=== PATIENT | female | born 1950 | race Caucasian/White ===

== ENCOUNTER 2020-07-01 13:57 | Outpatient (REF) | payer MEDICARE, SELFPAY ==
[2020-07-01 15:57] LABS: MANUAL DIFF FLAG NO
[2020-07-01 16:05] LABS: Basophils Percent Auto 0.2 % (0-2); Eosinophils Absolute Auto 0.4 X10*3/uL (0.0-0.4); Eosinophils Percent Auto 3.9 % (0-4); Hematocrit 37.8 % (37-47); Hemoglobin 12.2 g/dl (12.0-16.0); Imm Gran Abs Auto 0.03 X10*3/uL (0.00-0.03); Imm Gran Pct Auto 0.3 % (0.0-0.4); Lymphocytes Absolute Auto 3.2 X10*3/uL (1.2-4.9); Lymphocytes Percent Auto 34.3 % (20-40); Mean Corpuscular HGB Conc 32.3 g/dl (31.0-35.0); Mean Corpuscular Hemoglobin 28.4 pg (27.0-33.0); Mean Corpuscular Volume 87.9 fL (80-98); Mean Platelet Volume 10.2 fL (9.4-12.3); Monocytes Absolute Auto 0.6 X10*3/uL (0.1-1.2); Monocytes Percent Auto 6.7 % (2-11); Neutrophils Absolute Auto 5.1 X10*3/uL (2.0-8.3); Neutrophils Percent Auto 54.6 % (45-73); Platelet Count 271 X10*3/uL (160-400); Red Cell Distribution Width 13.6 % (11.0-16.0); White Blood Count 9.4 X10*3/uL (4.8-10.8)
[2020-07-01 16:49] LABS: Erythrocyte Sedimentation Rate 16 MM/HR (0-20)
[2020-07-02 04:12] LABS: SARS COV2 IgG Negative (Negative)
== END 2020-07-01 13:58 | disposition home or self-care (01) ==
LOC: HO.LAB 13:57
PROVIDERS: PCP Internal Medicine; Referring Provider Internal Medicine; Visit Provider Hospitalist
DX: J40 Bronchitis, not specified as acute or chronic (principal); G47.33 Obstructive sleep apnea (adult) (pediatric); F51.01 Primary insomnia; Z99.89 Dependence on other enabling machines and devices
CPT/HCPCS: 36415; 85025; 85652; 86769; 99214

== ENCOUNTER → 2021-01-16 13:25 | Outpatient (BNVA) | payer MEDICARE, SELFPAY | PROVIDERS: PCP Internal Medicine; Visit Provider Hospitalist | DX: F51.01 Primary insomnia (principal); G47.33 Obstructive sleep apnea (adult) (pediatric); Z99.89 Dependence on other enabling machines and devices | CPT/HCPCS: 99212 ==

== ENCOUNTER → 2021-07-21 12:36 | Outpatient (BNVA) | payer MEDICARE, SELFPAY | PROVIDERS: PCP Internal Medicine; Visit Provider Hospitalist | DX: G47.33 Obstructive sleep apnea (adult) (pediatric) (principal); G93.89 Other specified disorders of brain; F51.01 Primary insomnia; Z99.89 Dependence on other enabling machines and devices | CPT/HCPCS: 99212 ==

== ENCOUNTER → 2022-07-06 10:39 | Outpatient (BNVA) | payer MEDICARE, SELFPAY | PROVIDERS: PCP Internal Medicine; Visit Provider Hospitalist | DX: G47.33 Obstructive sleep apnea (adult) (pediatric) (principal); G47.00 Insomnia, unspecified; G93.89 Other specified disorders of brain; Z99.89 Dependence on other enabling machines and devices | CPT/HCPCS: 99212 ==

== ENCOUNTER → 2023-01-06 10:11 | Outpatient (BNVA) | payer BC, SELFPAY | PROVIDERS: PCP Physician Assistant Medical; Visit Provider Hospitalist | DX: F51.01 Primary insomnia (principal); G47.33 Obstructive sleep apnea (adult) (pediatric); J45.909 Unspecified asthma, uncomplicated; J38.5 Laryngeal spasm; G93.89 Other specified disorders of brain; Z99.89 Dependence on other enabling machines and devices | CPT/HCPCS: 94010; 94640 ==

== ENCOUNTER 2023-05-24 10:13 | Outpatient (AMB) | payer BC, SELFPAY ==
--- NOTE | 2023-05-24 10:21 | MHC.OFFVIS ---
Intake Vital Signs 05/24/23 10:22 Height 5 ft 2 in Weight 167 lb BMI 30.5 BP 126/68 Blood Pressure Location Lt brachial Position Sitting Pulse 64 Pulse Source Pulse Oximeter Pulse Oximetry (%) 98 Oxygen Delivery Method Room Air Intake Visit Reasons: Shortness of breath Casing Running Machine Tender Required: No Allergies No Known Allergies Allergy (Verified 05/24/23 10:24) HPI HPI Comments History of Present Illness Details The patient is a 72-year-old woman with a known history of obstructive sleep apnea on CPAP in addition to insomnia. she still struggles with her sleep. However, she finds that the bill summer all in the as needed lorazepam have become very effective in helping her sleep. She has tried numerous sleep aids without any significant improvement. In the meantime her CPAP machine has not been working properly. It appears the button some no longer working and she is having difficulties with her CPAP therapy due to the mouth functioning machine. Therefore, will request a new CPAP for her. This will provide better adherence and overall better therapy for the patient. The CPAP therapy has been very effective for her and she does use it for more than 4 hours a night in even when she naps. Also to note back in October she was very sick she thought she had COVID-19 infection. We had treated her that time with azithromycin and also Plaquenil. The patient made a full recovery. 01/16/2021 the patient is here for pulmonary follow-up visit. Overall the patient has been doing well. She does still struggle with her sleep. Seems like Belsomra is a very effective sleep aid for her. However, it is very expensive. Therefore will looking for alternatives for her sleep. She tends to do okay with trazodone. In addition to that she does take lorazepam as needed. At this point will try to optimize therapy increasing her trazodone 250 mg q.h.s. and also she can take it along with melatonin. I am hoping that she can avoid taking the lorazepam if possible. When she does sleep she does use her CPAP. The CPAP therapy continues to be affecting beneficial. She does use it for more than 4 hours a night. Denies any difficulties with her mask and seems to be tolerating it well. Otherwise patient is without any other complaints. 07/21/2021 the patient is here for a pulmonary follow-up visit. She had a very eventful summer with her son in the hospital. Apparently had a cardiac arrest due to a myocardial infarction. He did undergo percutaneous intervention and then life flighted to [employer] where he was on extracorporeal life support for many weeks. The patient was having significant anxiety and stress throughout the process. She was taking the Belsomra sleep aid without any significant relief. She was using benzodiazepines a little bit more often. Ultimately, her son improved and she is feeling better. However, while the [facility] the patient fell backwards hurting her head. She denies any significant symptoms but her friend urged her to go to the ER. She did go which she had a CT scan of the brain and subsequently an MRI of the brain demonstrating a 4 x 4 cm masslike density in the occipital lobe causing some mild compression of the nearby structures. The imaging was felt to be a meningioma. The patient has been significantly where it about the findings. She does have an appoint with neural surgery. Will try to facilitate her appointment hopefully she can be seen sooner. She is trying to keep the information away from her family. Her son does not become too we Re or concerned about her health in view of his recovery process. In regards to the sleep the patient will continue using the Belsomra at this time. She did bring her CPAP with her. The CPAP pressure appears to be a little too low for her liking. Her average pressure her machine is around 12 cm. Therefore increase her minimum pressure to 8 and a ramp to 6 in decreasing maximum pressure to 16. the patient will continue using her CPAP has been very affecting beneficial for her. I am hopeful that she can tolerate it better with the adjustments were made in the office. 07/06/2022 the patient is here for a pulmonary follow-up visit. Overall the patient has been doing better overall. She has seen a psychiatrist now in therefore had medication changes. He was able to stop the trazodone and also the Belsomra for sleep. She is getting better sleep. She is also using her CPAP. The CPAP therapy continues to be affecting beneficial. She does use it for more than 4 hours a night. However, her current machine is very old and no longer working. It is leaking water and not providing good seal. Therefore he has been able to use any water for humidification. He was able to be okay during the spring and summer. But now with the fall and winter it is getting very dry as far as the relative humidity. Therefore is hard for her to use it. We did call her DME company to see what the status is at her replace in the feeling that request during the last visit. Hopefully we get her a new machine in the coming weeks. Her current DME company is [employer]. 01/06/2023 the patient is here for a pulmonary follow-up visit. She is status post surgery and ultimately was intubated. Post surgery she was extubated and went into laryngeal spasms and was not ventilating. Therefore the patient was placed on succinylcholine and an LMA was in place. She was then able to ventilate. She was monitored for 24 hours and then she was discharged. The patient after that has still feels short of breath. Heart size hard time taking a full breath. On examination that she does not have any stridor. She does have any wheezing. We did have her undergo a spirometry with it did demonstrate limitation of the inspiratory flow in addition to this it demonstrated that her FEF 25% was decreased down to 60% suggesting small airways disease. Therefore we get did give her the albuterol treatment I did help her symptoms. The I did provide with a Symbicort inhaler in order to provide her with some inhaled steroid effect in addition to bronchodilation effect. She can do that daily. When she is better she can then use it as needed. She will have an x-ray done whenever able and will follow-up in the next few months. She is using her CPAP. CPAP therapy continues to be affecting beneficial. She does use it every night for more than 4 hours a night. We did download the machine and her AHI was slightly elevated at 5.2. Therefore I adjusted her pressure is a little bit for increasing her minimum pressure from 6-8. Maximum pressure would left lung at 16 cm. 05/24/2023 the patient is here for pulmonary follow-up visit. Overall the patient has been feeling well. She continues uses CPAP every night. CPAP therapy has been affecting beneficial. She did bring machine although not the cord. I did have access online. Seems like her AHI is higher at 10 episodes per hour. The patient does use a nasal mask. I did provide with an F 30 I mask which I believe will work better for her. With a fullface mask the patient will probably be able to tolerate the higher pressures. We did increase her Pap from 8-16 to 10-18. I am hopeful that she response to this therapy. In meantime she still struggles with her sleep. The patient has been using lorazepam as needed she sats adverse effects to the hypnotics in the past. She did not really respond well to the gabapentin. She will try melatonin and also Behavioral Sleep therapy. The patient also has the Symbicort inhaler. Has not really used it. Does not feel like she sees any benefit in using it. At this point the patient can use use it as needed. Will follow-up in 6 months otherwise if any new issues arise she can always call for an earlier assessment. [facility] Medical History (Updated 05/24/23 @ 21:35 by Abran Pastrana MD) Laryngospasm Reactive airway disease Mass of brain Insomnia CHEYENNE on CPAP Bronchitis Family History (Updated 07/01/20 @ 20:14 by Abran Pastrana MD) Other CHEYENNE (obstructive sleep apnea) Social History (Updated 07/21/21 @ 13:09 by Yana Alarcon [facility]) Patient Tobacco Use Status: Former Tobacco user Tobacco use type: Cigarette Years Smoked: 5 years Review of Systems Const Reports difficulty sleeping and Denies night sweats ENT Denies change in voice, Denies lip swelling, Denies mouth pain, Reports nasal congestion, Reports nasal discharge and Denies tongue swelling Card Denies chest pain and Denies dyspnea Resp Denies cough and Denies dyspnea GI Denies abdominal pain Musc Denies no additional complaints Neuro Denies Neuro-related abnormal movements Psych Reports anxiety Bebeto/Lymph Denies easy bleeding and Denies lymphadenopathy Aller/Immun Denies lip swelling and Denies tongue swelling Physical Exam Vital Signs: Last Vital Signs Pulse 64 05/24/23 10:22 BP 126/68 05/24/23 10:22 Pulse Ox 98 05/24/23 10:22 Oxygen Delivery Method Room Air 05/24/23 10:22 BMI result Body Mass Index 30.5 Const General: alert Neck Neck: Yes normal visual inspection, Yes full ROM and Yes no lymphadenopathy Chest Chest palpation & inspection: normal inspection of the chest Resp Auscultation: clear to auscultation bilaterally and wheezes Cardio Rate: regular rate Rhythm: regular rhythm Heart sounds: S1 normal heart sound present and S2 normal heart sound present GI Palpation (GI): Soft to palpation and nontender Auscultation: normal bowel sounds Skin General skin exam: rashes and/or lesions noted Assessment & Plan Assessment & Plan (1) Insomnia: Code(s): G47.00 - Insomnia, unspecified Qualifiers: Insomnia type: primary Qualified Code(s): F51.01 - Primary insomnia (2) CHEYENNE on CPAP: Code(s): G47.33 - Obstructive sleep apnea (adult) (pediatric); Z99.89 - Dependence on other enabling machines and devices (3) Reactive airway disease: Comment: secondary to anesthesia Code(s): J45.909 - Unspecified asthma, uncomplicated Qualifiers: Asthma complication type: uncomplicated Asthma persistence: intermittent Asthma severity: mild Qualified Code(s): J45.20 - Mild intermittent asthma, uncomplicated Plan Continue CPAP therapy as prescribed. AHI is 10, will adjust APAP 10-18, ramp 8, trial F30i small mask continue Gabapentin CXR 02/2023-no acute disease continue Symbicort as needed Follow-up in 6 months Coding Level of Care Code Est Pt Level 4 (14721) Diagnoses Primary insomnia F51.01 Insomnia type: primary CHEYENNE on CPAP G47.33; Z99.89 Mild intermittent reactive airway disease without complication J45.20 Asthma complication type: uncomplicated Asthma persistence: intermittent Asthma severity: mild Time Spent (min) 17
[2023-05-24 10:22] VITALS: BP 126/68; PULSE 64; O2SAT 98; BMI 30.5
== END 2023-05-24 10:52 | disposition home or self-care (01) ==
PROVIDERS: PCP Physician Assistant Medical; Visit Provider Hospitalist
DX: F51.01 Primary insomnia (principal); G47.33 Obstructive sleep apnea (adult) (pediatric); Z99.89 Dependence on other enabling machines and devices; J45.20 Mild intermittent asthma, uncomplicated
CPT/HCPCS: 99214

== ENCOUNTER → 2023-05-24 10:13 | Outpatient (BNVA) | payer BC, SELFPAY | PROVIDERS: PCP Physician Assistant Medical; Visit Provider Hospitalist | DX: J40 Bronchitis, not specified as acute or chronic (principal); J44.9 Chronic obstructive pulmonary disease, unspecified ==

== ENCOUNTER → 2023-07-14 09:55 | Outpatient (REF) | payer BC, SELFPAY | LOC: HO.SL 09:55 | PROVIDERS: PCP Physician Assistant Medical; Visit Provider Hospitalist | DX: Z13.89 Encounter for screening for other disorder (principal) ==

== ENCOUNTER 2023-11-23 09:54 | Outpatient (AMB) | payer BC, SELFPAY ==
--- NOTE | 2023-11-23 09:58 | A.OFFVIS_ITS ---
Intake Vital Signs 11/23/23 10:02 Weight 162 lb 0.636 oz BP 122/70 Blood Pressure Location Lt brachial Position Sitting Pulse 73 Pulse Source Pulse Oximeter Pulse Oximetry (%) 96 Oxygen Delivery Method Room Air Intake Visit Reasons: Shortness of breath Allergies No Known Allergies Allergy (Verified 11/23/23 10:04) Medication List - Last Reconciled 11/23/23 by Gretchen Conte LPN atorvastatin 20 mg PO DAILY budesonide-formoterol 160-4.5 mcg/actuation (Symbicort) 2 puffs inhalation BID 90 days bupropion HCl 200 mg PO QAM escitalopram oxalate 20 mg PO DAILY gabapentin 400 mg PO DAILY lorazepam 0.5 mg PO DAILY PRN valsartan 80 mg PO DAILY HPI HPI Comments History of Present Illness Details The patient is a 73-year-old woman with a known history of obstructive sleep apnea on CPAP in addition to insomnia. she still struggles with her sleep. However, she finds that the bill summer all in the as needed lorazepam have become very effective in helping her sleep. She has tried numerous sleep aids without any significant improvement. In the meantime her CPAP machine has not been working properly. It appears the button some no longer working and she is having difficulties with her CPAP therapy due to the mouth functioning machine. Therefore, will request a new CPAP for her. This will provide better adherence and overall better therapy for the patient. The CPAP therapy has been very effective for her and she does use it for more than 4 hours a night in even when she naps. Also to note back in October she was very sick she thought she had COVID-19 infection. We had treated her that time with azithromycin and also Plaquenil. The patient made a full recovery. 07/06/2022 the [facility] Overall the patient has been doing better overall. She has seen a psychiatrist now in therefore had medication changes. He was able to stop the trazodone and also the Belsomra for sleep. She is getting better sleep. She is also using her CPAP. The CPAP therapy continues to be affecting beneficial. She does use it for more than 4 hours a night. However, her current machine is very old and no longer working. It is leaking water and not providing good seal. Therefore he has been able to use any water for humidification. He was able to be okay during the spring and summer. But now with the fall and winter it is getting very dry as far as the relative humidity. Therefore is hard for her to use it. We did call her DME company to see what the status is at her replace in the feeling that request during the last visit. Hopefully we get her a new machine in the coming weeks. Her current DME company is [employer]. 01/06/2023 the patient is here for a pulm onary follow-up visit. She is status post surgery and ultimately was intubated. Post surgery she was extubated and went into laryngeal spasms and was not ventilating. Therefore the patient was placed on succinylcholine and an LMA was in place. She was then able to ventilate. She was monitored for 24 hours and then she was discharged. The patient after that has still feels short of breath. Heart size hard time taking a full breath. On examination that she does not have any stridor. She does have any wheezing. We did have her undergo a spirometry with it did demonstrate limitation of the inspiratory flow in addition to this it demonstrated that her FEF 25% was decreased down to 60% suggesting small airways disease. Therefore we get did give her the albuterol treatment I did help her symptoms. The I did provide with a Symbicort inhaler in order to provide her with some inhaled steroid effect in addition to bronchodilation effect. She can do that daily. When she is better she can then use it as needed. She will have an x-ray done whenever able and will follow-up in the next few months. She is using her CPAP. CPAP therapy continues to be affecting beneficial. She does use it every night for more than 4 hours a night. We did download the machine and her AHI was slightly elevated at 5.2. Therefore I adjusted her pressure is a little bit for increasing her minimum pressure from 6-8. Maximum pressure would left lung at 16 cm. 05/24/2023 the patient is here for pulmon [place] follow-up visit. Overall the p atient has been feeling well. She continues uses CPAP every night. CPAP therapy has been affecting beneficial. She did bring machine although not the cord. I did have access online. Seems like her AHI is higher at 10 episodes per hour. The patient does use a nasal mask. I did provide with an F 30 I mask which I believe will work better for her. With a fullface mask the patient will probably be able to tolerate the higher pressures. We did increase her Pap from 8-16 to 10-18. I am hopeful that she response to this therapy. In meantime she still struggles with her sleep. The patient has been using lorazepam as needed she sats adverse effects to the hypnotics in the past. She did not really respond well to the gabapentin. She will try melatonin and also Behavioral Sleep therapy. The patient also has the Symbicort inhaler. Has not really used it. Does not feel like she sees any benefit in using it. At this point the patient can use use it as needed. Will follow-up in 6 months otherwise if any new issues arise she can always call for an earlier assessment. 11/23/2023 the patient is here for a pulm onary follow-up visit. Overall the patient is doing well. She is that back in [place]. She has been using her CPAP every night. The CPAP therapy continues to be very affecting beneficial. She does use it every night. Although she has been having some issues with her mask fitting in addition to her supplies. She does use [employer]. the patient does have an F30 I medium mask that is been working well for her although, it is crying now broken and I did provide her with a new cushion for which seems to be much better. In addition to that her AHI significantly elevated. Averages around 11.3 and last night was around 20. And appears to be that is mainly obstructive in nature. The patient needs to have a repeat sleep study this time. She actually needs a titration study but may need a sleep study in order to get a active with the [employer]. We did request a home sleep study during the fall. However, the patient had a lot of difficulties with it. And she may have some issues with memory that makes it very hard for her to complete the task. Therefore, an in-lab sleep study will be very effective for her we can diagnosed with sleep apnea and then titrate her with a split study. Therefore put it order right now to do that. The patient does have significant needs for the CPAP and right now is not working for her as well. From a respiratory status she is doing fine. She did get a rescue inhaler during the last visit. She has not had to use it recently. Therefore, follow-up with the patient after her study. [facility] Medical History (Updated 06/03/23 @ 12:30 by Abran Pastrana MD) CHEYENNE (obstructive sleep apnea) Laryngospasm Reactive airway disease Mass of brain Insomnia CHEYENNE on CPAP Bronchitis Family History (Updated 07/01/20 @ 20:14 by Abran Pastrana MD) Other CHEYENNE (obstructive sleep apnea) Social History (Updated 07/21/21 @ 13:09 by Yana Alarcon [facility]) Patient Tobacco Use Status: Former Tobacco user Tobacco use type: Cigarette Years Smoked: 5 years Review of Systems Const Reports difficulty sleeping and Denies night sweats ENT Denies change in voice, Denies lip swelling, Denies mouth pain, Reports nasal congestion, Reports nasal discharge and Denies tongue swelling Card Denies chest pain and Denies dyspnea Resp Denies cough and Denies dyspnea GI Denies abdominal pain Musc Denies no additional complaints Neuro Denies Neuro-related abnormal movements Psych Reports anxiety Bebeto/Lymph Denies easy bleeding and Denies lymphadenopathy Aller/Immun Denies lip swelling and Denies tongue swelling Physical Exam Vital Signs: Last Vital Signs Pulse 73 11/23/23 10:02 BP 122/70 11/23/23 10:02 Pulse Ox 96 11/23/23 10:02 Oxygen Delivery Method Room Air 11/23/23 10:02 Const General: alert Neck Neck: Yes normal visual inspection, Yes full ROM and Yes no lymphadenopathy Chest Chest palpation & inspection: normal inspection of the chest Resp Auscultation: clear to auscultation bilaterally and no wheezes Cardio Rate: regular rate Rhythm: regular rhythm Heart sounds: S1 normal heart sound present and S2 normal heart sound present GI Palpation (GI): Soft to palpation and nontender Auscultation: normal bowel sounds Skin General skin exam: rashes and/or lesions noted Assessment & Plan Assessment & Plan (1) Insomnia: Code(s): G47.00 - Insomnia, unspecified Qualifiers: Insomnia type: primary Qualified Code(s): F51.01 - Primary insomnia (2) CHEYENNE on CPAP: Code(s): G47.33 - Obstructive sleep apnea (adult) (pediatric); Z99.89 - Dependence on other enabling machines and devices (3) Reactive airway disease: Comment: secondary to anesthesia Code(s): J45.909 - Unspecified asthma, uncomplicated Qualifiers: Asthma complication type: uncomplicated Asthma persistence: intermittent Asthma severity: mild Qualified Code(s): J45.20 - Mild intermittent asthma, uncomplicated Plan Continue CPAP therapy as prescribed. AHI is 11, will adjust APAP 6-18, ramp 8, trial F30i small mask requesting a split sleep study continue Gabapentin CXR 02/2023-no acute disease continue Symbicort as needed Follow-up in 3-4 months Orders: Orders RT PSG in-lab sleep study Today Coding Level of Care Code Est Pt Level 4 (22067) Diagnoses Primary insomnia F51.01 Insomnia type: primary CHEYENNE on CPAP G47.33; Z99.89 Mild intermittent reactive airway disease without complication J45.20 Asthma complication type: uncomplicated Asthma persistence: intermittent Asthma severity: mild Time Spent (min) 17
[2023-11-23 10:02] VITALS: BP 122/70; PULSE 73; O2SAT 96
== END 2023-11-23 10:34 | disposition home or self-care (01) ==
PROVIDERS: PCP Physician Assistant Medical; Visit Provider Hospitalist
DX: F51.01 Primary insomnia (principal); G47.33 Obstructive sleep apnea (adult) (pediatric); Z99.89 Dependence on other enabling machines and devices; J45.20 Mild intermittent asthma, uncomplicated
CPT/HCPCS: 99214

== ENCOUNTER → 2023-11-23 09:54 | Outpatient (BNVA) | payer BC, SELFPAY | PROVIDERS: PCP Physician Assistant Medical; Visit Provider Hospitalist | DX: J40 Bronchitis, not specified as acute or chronic (principal); J44.9 Chronic obstructive pulmonary disease, unspecified ==

== ENCOUNTER → 2024-02-14 13:47 | Outpatient (REF) | payer BC, SELFPAY | LOC: HO.SL 13:47 | PROVIDERS: PCP Physician Assistant Medical; Visit Provider Hospitalist | DX: Z13.89 Encounter for screening for other disorder (principal) ==

== ENCOUNTER 2024-04-03 09:59 | Outpatient (AMB) | payer BC, SELFPAY ==
[2024-04-03 10:08] VITALS: PULSE 69; O2SAT 96; BMI 31.1
--- NOTE | 2024-04-03 10:08 | A.OFFVIS_ITS ---
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 she still struggles with her sleep. However, she finds that the bill summer all in the as needed lorazepam have become very effective in helping her sleep. She has tried numerous sleep aids without any significant improvement. In the meantime her CPAP machine has not been working properly. It appears the button some no longer working and she is having difficulties with her CPAP therapy due to the mouth functioning machine. Therefore, will request a new CPAP for her. This will provide better adherence and overall better therapy for the patient. The CPAP therapy has been very effective for her and she does use it for more than 4 hours a night in even when she naps. Also to note back in October she was very sick she thought she had COVID-19 infection. We had treated her that time with azithromycin and also Plaquenil. The patient made a full recovery. 07/06/2022 the patient is here for a pulmonary follow-up visit. Overall the alex suh has been doing better overall. She has seen a psychiatrist now in therefore had medication changes. He was able to stop the trazodone and also the Belsomra for sleep. She is getting better sleep. She is also using her CPAP. The CPAP therapy continues to be affecting beneficial. She does use it for more than 4 hours a night. However, her current machine is very old and no longer working. It is leaking water and not providing good seal. Therefore he has been able to use any water for humidification. He was able to be okay during the spring and summer. But now with the fall and winter it is getting very dry as far as the relative humidity. Therefore is hard for her to use it. We did call her DME company to see what the status is at her replace in the feeling that request during the last visit. Hopefully we get her a new machine in the coming weeks. Her current DME company is [employer]. 01/06/2023 the patient is here for a pulmonary follow-up visit. She is status post surgery and ultimately was intubated. Post surgery she was extubated and went into laryngeal spasms and was not ventilating. Therefore the patient was placed on succinylcholine and an LMA was in place. She was then able to ventilate. She was monitored for 24 hours and then she was discharged. The patient after that has still feels short of breath. Heart size hard time taking a full breath. On examination that she does not have any stridor. She does have any wheezing. We did have her undergo a spirometry with it did demonstrate limitation of the inspiratory flow in addition to this it demonstrated that her FEF 25% was decreased down to 60% suggesting small airways disease. Therefore we get did give her the albuterol treatment I did help her symptoms. The I did provide with a Symbicort inhaler in order to provide her with some inhaled steroid effect in addition to bronchodilation effect. She can do that daily. When she is better she can then use it as needed. She will have an x-ray done whenever able and will follow-up in the next few months. She is using her CPAP. CPAP therapy continues to be affecting beneficial. She does use it every night for more than 4 hours a night. We did download the machine and her AHI was slightly elevated at 5.2. Therefore I adjusted her pressure is a little bit for increasing her minimum pressure from 6-8. Maximum pressure would left lung at 16 cm. 05/24/2023 the patient is here for pulmonary follow-up visit. Overall the patient has been feeling well. She continues uses CPAP every night. CPAP therapy has been affecting beneficial. She did bring machine although not the cord. I did have access online. Seems like her AHI is higher at 10 episodes per hour. The patient does use a nasal mask. I did provide with an F 30 I mask which I believe will work better for her. With a fullface mask the patient will probably be able to tolerate the higher pressures. We did increase her Pap from 8-16 to 10-18. I am hopeful that she response to this therapy. In meantime she still struggles with her sleep. The patient has been using lorazepam as needed she sats adverse effects to the hypnotics in the past. She did not really respond well to the gabapentin. She will try melatonin and also Behavioral Sleep therapy. The patient also has the Symbicort inhaler. Has not really used it. Does not feel like she sees any benefit in using it. At this point the patient can use use it as needed. Will follow-up in 6 months otherwise if any new issues arise she can always call for an earlier assessment. 11/23/2023 the patient is here for a pulmonary follow-up visit. Overall the patient is doing well. She is that back in [place]. She has been using her CPAP every night. The CPAP therapy continues to be very affecting beneficial. She does use it every night. Although she has been having some issues with her mask fitting in addition to her supplies. She does use [employer] the patient does have an F30 I medium mask that is been working well for her although, it is crying now broken and I did provide her with a new cushion for which seems to be much better. In addition to that her AHI significantly e levated. Averages around 11.3 and last night was around 20. And appears to be that is mainly obstructive in nature. The patient needs to have a repeat sleep study this time. She actually needs a titration study but may need a sleep study in order to get a active with the [employer] company. We did request a home sleep study during the fall. However, the patient had a lot of difficulties with it. And she may have some issues with memory that makes it very hard for her to complete the task. Therefore, an in-lab sleep study will be very effective for her we can diagnosed with sleep apnea and then titrate her with a split study. Therefore put it order right now to do that. The patient does have significant needs for the CPAP and right now is not working for her as well. From a respiratory status she is doing fine. She did get a rescue inhaler during the last visit. She has not had to use it recently. Therefore, follow-up with the patient after her study. 04/03/2024 the patient is here for a pulmonary follow-up visit. Overall she is doing okay. She wishes that the tape and she forgot her meds and she had a difficult time that she did have her psychiatric blood pressure medications. Now she is back to her baseline. She is using her CPAP and she did use the new mask that seems to be feeling better. We were able to download her machine seems that the AHI is improving as well. Will go ahead and adjust her machine further increasing pressures to some degree. I am hopeful that she can not tolerate the higher pressure and we can bring the AHI down. Will go ahead and looked at the data in a couple weeks after she calls the office. Once we will to assess that we can figure out if she needs to continue on the current settings or does settings are not enough will at that point probably need a titration studies and she will be maxed out on her CPAP and will benefit from a BiPAP. Therefore will reassess in a couple weeks when she calls in to see her progress on CPAP. From a respiratory status she is doing okay. She has all her medications available. Will follow-up in 6-8 months or sooner if she continues to have difficulties with her CPAP. [facility] Medical History (Updated 06/03/23 @ 12:30 by Abran Pastrana MD) CHEYENNE (obstructive sleep apnea) Laryngospasm Reactive airway disease Mass of brain Insomnia CHEYENNE on CPAP Bronchitis Family History (Updated 07/01/20 @ 20:14 by Abran Pastrana MD) Other CHEYENNE (obstructive sleep apnea) Social History (Updated 07/21/21 @ 13:09 by Yana Alarcon Rosalio) Patient Tobacco Use Status: Former Tobacco user Tobacco use type: Cigarette Years Smoked: 5 years Review of Systems Const Reports difficulty sleeping and Denies night sweats ENT Denies change in voice, Denies lip swelling, Denies mouth pain, Reports nasal congestion, Reports nasal discharge and Denies tongue swelling Card Denies chest pain and Denies dyspnea Resp Denies cough and Denies dyspnea GI Denies abdominal pain Musc Denies no additional complaints Neuro Denies Neuro-related abnormal movements Psych Reports anxiety Bebeto/Lymph Denies easy bleeding and Denies lymphadenopathy Aller/Immun Denies lip swelling and Denies tongue swelling Physical Exam Vital Signs: Last Vital Signs Pulse 69 04/03/24 10:08 Pulse Ox 96 04/03/24 10:08 Oxygen Delivery Method Room Air 04/03/24 10:08 BMI result Body Mass Index 31.1 Const General: alert Neck Neck: Yes normal visual inspection, Yes full ROM and Yes no lymphadenopathy Chest Chest palpation & inspection: normal inspection of the chest Resp Auscultation: clear to auscultation bilaterally and no wheezes Cardio Rate: regular rate Rhythm: regular rhythm Heart sounds: S1 normal heart sound present and S2 normal heart sound present GI Palpation (GI): Soft to palpation and nontender Auscultation: normal bowel sounds Skin General skin exam: rashes and/or lesions noted Assessment & Plan Assessment & Plan (1) Insomnia: Code(s): G47.00 - Insomnia, unspecified Category: Medical Qualifiers: Insomnia type: primary Qualified Code(s): F51.01 - Primary insomnia (2) CHEYENNE on CPAP: Code(s): G47.33 - Obstructive sleep apnea (adult) (pediatric); Z99.89 - Dependence on other enabling machines and devices Category: Medical (3) Reactive airway disease: Comment: secondary to anesthesia Code(s): J45.909 - Unspecified asthma, uncomplicated Category: Medical Qualifiers: Asthma complication type: uncomplicated Asthma persistence: intermittent Asthma severity: mild Qualified Code(s): J45.20 - Mild intermittent asthma, uncomplicated Plan Continue CPAP therapy as prescribed. AHI is 11, will adjust APAP 8-20, ramp 6, trial F30i small mask consider titration study if persistent elevated AHI continue Gabapentin CXR 02/2023-no acute disease continue Symbicort as needed Follow-up in 6-8 months Coding Level of Care Code Est Pt Level 4 (94564) Diagnoses Primary insomnia F51.01 Insomnia type: primary CHEYENNE on CPAP G47.33; Z99.89 Mild intermittent reactive airway disease without complication J45.20 Asthma complication type: uncomplicated Asthma persistence: intermittent Asthma severity: mild Time Spent (min) 16
== END 2024-04-03 10:25 | disposition home or self-care (01) ==
PROVIDERS: PCP Physician Assistant Medical; Visit Provider Hospitalist
DX: F51.01 Primary insomnia (principal); G47.33 Obstructive sleep apnea (adult) (pediatric); Z99.89 Dependence on other enabling machines and devices; J45.20 Mild intermittent asthma, uncomplicated
CPT/HCPCS: 99214

== ENCOUNTER → 2024-04-03 09:59 | Outpatient (BNVA) | payer BC, SELFPAY | PROVIDERS: PCP Physician Assistant Medical; Visit Provider Hospitalist ==

== ENCOUNTER 2024-11-21 13:33 | Outpatient (AMB) | payer MEDICARE, SELFPAY ==
--- NOTE | 2024-11-21 13:40 | MHC.OFFVIS ---
Vital Signs 11/21/24 13:42 Height 5 ft 2 in Weight 141 lb 1.533 oz BMI 25.8 BP 94/60 Blood Pressure Location Rt brachial Position Sitting Pulse 69 Pulse Source Pulse Oximeter Pulse Oximetry (%) 98 Oxygen Delivery Method Room Air Intake Visit Reasons: Shortness of breath Allergies No Known Allergies Allergy (Verified 11/21/24 13:48) HPI Comments Details: The patient is a 74-year-old woman with a known history of obstructive sleep apnea on CPAP in addition to insomnia. she still struggles with her sleep. However, she finds that the bill summer all in the as needed lorazepam have become very effective in helping her sleep. She has tried numerous sleep aids without any significant improvement. In the meantime her CPAP machine has not been working properly. It appears the button some no longer working and she is having difficulties with her CPAP therapy due to the mouth functioning machine. Therefore, will request a new CPAP for her. This will provide better adherence and overall better therapy for the patient. The CPAP therapy has been very effective for her and she does use it for more than 4 hours a night in even when she naps. Also to note back in October she was very sick she thought she had COVID-19 infection. We had treated her that time with azithromycin and also Plaquenil. The patient made a full recovery. 07/06/2022 the patient is here for a pulmonary follow-up visit. Overall the patient has been doing better overall. She has seen a psychiatrist now in therefore had medication changes. He was able to stop the trazodone and also the Belsomra for sleep. She is getting better sleep. She is also using her CPAP. The CPAP therapy continues to be affecting beneficial. She does use it for more than 4 hours a night. However, her current machine is very old and no longer working. It is leaking water and not providing good seal. Therefore he has been able to use any water for humidification. He was able to be okay during the spring and summer. But now with the fall and winter it is getting very dry as far as the relative humidity. Therefore is hard for her to use it. We did call her DME company to see what the status is at her replace in the feeling that request during the last visit. Hopefully we get her a new machine in the coming weeks. Her current DME company is [employer]. 01/06/2023 the patient is here for a pulmonary follow-up visit. She is status post surgery and ultimately was intubated. Post surgery she was extubated and went into laryngeal spasms and was not ventilating. Therefore the patient was placed on succinylcholine and an LMA was in place. She was then able to ventilate. She was monitored for 24 hours and then she was discharged. The patient after that has still feels short of breath. Heart size hard time taking a full breath. On examination that she does not have any stridor. She does have any wheezing. We did have her undergo a spirometry with it did demonstrate limitation of the inspiratory flow in addition to this it demonstrated that her FEF 25% was decreased down to 60% suggesting small airways disease. Therefore we get did give her the albuterol treatment I did help her symptoms. The I did provide with a Symbicort inhaler in order to provide her with some inhaled steroid effect in addition to bronchodilation effect. She can do that daily. When she is better she can then use it as needed. She will have an x-ray done whenever able and will follow-up in the next few months. She is using her CPAP. CPAP therapy continues to be affecting beneficial. She does use it every night for more than 4 hours a night. We did download the machine and her AHI was slightly elevated at 5.2. Therefore I adjusted her pressure is a little bit for increasing her minimum pressure from 6-8. Maximum pressure would left lung at 16 cm. 05/24/2023 the patient is here for pulmonary follow-up visit. Overall the patient has been feeling well. She continues uses CPAP every night. CPAP therapy has been affecting beneficial. She did bring machine although not the cord. I did have access online. Seems like her AHI is higher at 10 episodes per hour. The patient does use a nasal mask. I did provide with an F 30 I mask which I believe will work better for her. With a fullface mask the patient will probably be able to tolerate the higher pressures. We did increase her Pap from 8-16 to 10-18. I am hopeful that she response to this therapy. In meantime she still struggles with her sleep. The patient has been using lorazepam as needed she sats adverse effects to the hypnotics in the past. She did not really respond well to the gabapentin. She will try melatonin and also Behavioral Sleep therapy. The patient also has the Symbicort inhaler. Has not really used it. Does not feel like she sees any benefit in using it. At this point the patient can use use it as needed. Will follow-up in 6 months otherwise if any new issues arise she can always call for an earlier assessment. 11/23/2023 the patient is here for a pulmonary follow-up visit. Overall the patient is doing well. She is that back in [place]. She has been using her CPAP every night. The CPAP therapy continues to be very affecting beneficial. She does use it every night. Although she has been having some issues with her mask fitting in addition to her supplies. She does use [employer] the patient does have an F30 I medium mask that is been working well for her although, it is crying now broken and I did provide her with a new cushion for which seems to be much better. In addition to that her AHI significantly elevated. Averages around 11.3 and last night was around 20. And appears to be that is mainly obstructive in nature. The patient needs to have a repeat sleep study this time. She actually needs a titration study but may need a sleep study in order to get a active with the [employer] company. We did request a home sleep study during the fall. However, the patient had a lot of difficulties with it. And she may have some issues with memory that makes it very hard for her to complete the task. Therefore, an in-lab sleep study will be very effective for her we can diagnosed with sleep apnea and then titrate her with a split study. Therefore put it order right now to do that. The patient does have significant needs for the CPAP and right now is not working for her as well. From a respiratory status she is doing fine. She did get a rescue inhaler during the last visit. She has not had to use it recently. Therefore, follow-up with the patient after her study. 04/03/2024 the patient is here for a pulmonary follow-up visit. Overall she is doing okay. She wishes that the tape and she forgot her meds and she had a difficult time that she did have her psychiatric blood pressure medications. Now she is back to her baseline. She is using her CPAP and she did use the new mask that seems to be feeling better. We were able to download her machine seems that the AHI is improving as well. Will go ahead and adjust her machine further increasing pressures to some degree. I am hopeful that she can not tolerate the higher pressure and we can bring the AHI down. Will go ahead and looked at the data in a couple weeks after she calls the office. Once we will to assess that we can figure out if she needs to continue on the current settings or does settings are not enough will at that point probably need a titration studies and she will be maxed out on her CPAP and will benefit from a BiPAP. Therefore will reassess in a couple weeks when she calls in to see her progress on CPAP. From a respiratory status she is doing okay. She has all her medications available. Will follow-up in 6-8 months or sooner if she continues to have difficulties with her CPAP. 11/21/2024 the patient is here for a pulmonary follow-up visit. The patient has been using the CPAP every night. CPAP therapy has been affecting beneficial. She does use for more than 4 hours a night. She had been having issues with her memory now. Her AHI continues to be very elevated at 13. We did request a titration study previously but it was not approved by insurance company for unclear reason. The patient continues to have a significantly high Mauk score and she is symptomatic therefore she needs to have a titration study in order to see if we need to either increase the pressures or change her PAP therapy altogether. In the meantime I did increase the pressure further from 8-10 cm pressure high pressure of 20 cm. The patient also will try new mask will try the F 40 mask from the [employer] company. From a respiratory status the patient is doing okay. Denies any wheezing coughing or chest tightness. [facility] Medical History (Updated 11/21/24 @ 22:31 by Abran Pastrana MD) CHEYENNE (obstructive sleep apnea) Laryngospasm Reactive airway disease Mass of brain Insomnia CHEYENNE on CPAP Bronchitis Family History (Updated 07/01/20 @ 20:14 by Abran Pastrana MD) Other CHEYENNE (obstructive sleep apnea) Social History Patient Tobacco Use Status: Former Tobacco user Tobacco use type: Cigarette Years Smoked: 5 years Review of Systems Const Reports difficulty sleeping and Denies night sweats ENT Denies change in voice, Denies lip swelling, Denies mouth pain, Reports nasal congestion, Reports nasal discharge and Denies tongue swelling Card Denies chest pain and Denies dyspnea Resp Denies cough and Denies dyspnea GI Denies abdominal pain Musc Denies no additional complaints Neuro Denies Neuro-related abnormal movements Psych Reports anxiety Bebeto/Lymph Denies easy bleeding and Denies lymphadenopathy Aller/Immun Denies lip swelling and Denies tongue swelling Physical Exam Vital Signs: Last Vital Signs Pulse 69 11/21/24 13:42 BP 94/60 11/21/24 13:42 Pulse Ox 98 11/21/24 13:42 Oxygen Delivery Method Room Air 11/21/24 13:42 BMI result Body Mass Index 25.8 Const General: alert Neck Neck: Yes normal visual inspection, Yes full ROM and Yes no lymphadenopathy Chest Chest palpation & inspection: normal inspection of the chest Resp Auscultation: clear to auscultation bilaterally and no wheezes Cardio Rate: regular rate Rhythm: regular rhythm Heart sounds: S1 normal heart sound present and S2 normal heart sound present GI Palpation (GI): Soft to palpation and nontender Auscultation: normal bowel sounds Skin General skin exam: rashes and/or lesions noted Assessment & Plan Assessment & Plan (1) Insomnia: Code(s): G47.00 - Insomnia, unspecified Category: Medical Qualifiers: Insomnia type: primary Qualified Code(s): F51.01 - Primary insomnia (2) CHEYENNE on CPAP: Comment: with elevated AHI 13 on APAP Code(s): G47.33 - Obstructive sleep apnea (adult) (pediatric); Z99.89 - Dependence on other enabling machines and devices Category: Medical (3) Reactive airway disease: Comment: secondary to anesthesia Code(s): J45.909 - Unspecified asthma, uncomplicated Category: Medical Qualifiers: Asthma complication type: uncomplicated Asthma persistence: intermittent Asthma severity: mild Qualified Code(s): J45.20 - Mild intermittent asthma, uncomplicated (4) CHEYENNE (obstructive sleep apnea): Code(s): G47.33 - Obstructive sleep apnea (adult) (pediatric) Category: Medical Plan Continue CPAP therapy as prescribed. AHI is 11->13, will adjust APAP 10-20, ramp 8, requesting F40 needs titration study for worsening AHI on proper APAP therapy continue Gabapentin CXR 02/2023-no acute disease continue Symbicort as needed Follow-up in 4-6 months Orders: Orders RT PSG in-lab sleep titration Today G47.33 - Obstructive sleep apnea (adult) (pediatric) Coding Level of Care Code Est Pt Level 4 (32630) Diagnoses Primary insomnia F51.01 Insomnia type: primary CHEYENNE on CPAP G47.33; Z99.89 Mild intermittent reactive airway disease without complication J45.20 Asthma complication type: uncomplicated Asthma persistence: intermittent Asthma severity: mild CHEYENNE (obstructive sleep apnea) G47.33 Time Spent (min) 17
[2024-11-21 13:42] VITALS: BP 94/60; PULSE 69; O2SAT 98; BMI 25.8
--- OUTSIDE RECORDS SUMMARY | 2024-11-21 16:25 | XMS_ITS | Encounter Summary ---
Author Organization [facility] Address [address] [place] [id number] Care Team Providers Care Collection Supervisor Name Role Phone Nani Fowler Primary Care Provider [phone] Reason for Visit * Reason Comments Sore Throat Encounter Details Date Type Department Care Team (Late st Contact Info) Description 10/23/2024 11:45 AM EST Office Visit [facility] [address], [place] [address] Shahbaz Mills MD [address] [place] [phone] Dysphonia (Primary Dx); Vocal cord paresis; Gastroesophageal reflux disease without esophagitis; Memory loss Social History Tobacco Use Types Packs/Day Years Used Date Smoking Tobacco: Never Passive Smoke Exposure: Never Smokeless Tobacco: Never Sex and Gender Information Value Date Recorded Sex Assigned at Not on file Gender Identity Not on file Sexual Orientation Not on file documented as of this encounter Last Filed Vital Signs Vital Sign Reading Time Taken Comments Blood Pressure - - Pulse - - Temperature - - Respiratory Rate - - Oxygen Saturation - - Inhaled Oxygen Concentration - - Weight 77.1 kg (170 lb) 10/23/2024 11:21 AM EST Height 162.6 cm (5' 4 ) 10/23/2024 11:21 AM EST Body Mass Index 29.18 10/23/2024 11:21 AM EST documented in this encounter Progress Notes * Shahbaz Mills MD - 10/23/2024 11:45 AM EST Images from the original note were not included. [address] [place] [address], [facility] [id number] Loc: [phone] Encounter Date: 10/23/2024 Chief Complaint Patient presents with Sore Throat 1. Dysphonia 2. Vocal cord paresis 3. Gastroesophageal reflux disease without esophagitis 4. Memory loss ASSESSMENT AND PLAN Jaky Lackey is a 74-year-old female presenting for follow-up of dysphonia and a vocal cord polyp. She has been on famotidine for laryngopharyngeal reflux. A CT scan of the neck with contrast on 08/08/2024 showed no neck mass or specific lymphadenopathy, only prominent bilateral cervical lymph nodes.The patient reports no recurrence of facial swelling or parotitis since her last visit. She continues to experience significant hoarseness and reports that her voice is particularly weak in the morning. There is a noted left vocal cord weakness without a clear etiology, potentially idiopathic or post-viral. No new findings were observed on examination today. - Continue famotidine medication - Referral to Speech and Language Pathology at [facility] - Provide patient with a copy of the CT scan report - Neurology referral for memory concerns - Follow-up appointment in six months HISTORY OF PRESENT ILLNESS Jaky Lackey reports persistent hoarseness and voice weakness, especially in the mornings. She has not experienced any recurrence of facial swelling or parotitis. She continues to take famotidine and requests a refill. She stopped taking cetirizine as it did not seem to help her sinus issues. She is concerned about her voice quality and reports that people have difficulty understanding her. She hasa history of brain surgery for a meningioma and undergoes regular brain scans. PHYSICAL EXAM The patient was in no acute distress and breathing comfortably on exam. Examination of the ears, nose, oral cavity, oropharynx, and neck was completed and found to be within normal limits with the following notable exceptions and findings highlighted here: - Ears: Normal - Nose: Normal - Throat: Left vocal cord weakness observed, both cords moving but asymmetrically. No polyps, masses, or ulceration observed DIAGNOSTIC TESTING REVIEWED CT scan of the neck with contrast on 08/08/2024 showed no evidence of neck mass or specific lymphadenopathy. There were prominent bilateral cervical lymph nodes but no abnormalities. The scan was read as normal. Procedure: Flexible Fiberoptic Laryngoscopy Indication: Ongoing throat symptoms not improving with medical strategies and inability to fully evaluate the area of concern with transoral exam Description: In order to evaluate the area of concern, and in the context of the patient's symptomsnot fully accounted for oral cavity and oropharyngeal exam, a flexible fiberoptic endoscopy was discussed with the patient. Following consent for the procedure, topical 50:50 4% lidocaine/oxymetazoline solution was used as a topical anesthesic and decongestant. After adequate time for this to take e ffect, an endoscope was used to evaluate the nasal passages, nasopharynx, oropharynx, larynx, and hypopharynx. Please see findings below for details. The endoscope was then removed and the patient was observed without bleeding and with good respirations. The patient tolerated the procedure was and was discharged home in good condition. Findings: Nasal passages and nasopharynx: mild edema throughout without mucosal lesions, no obstructing lesions, patent eustachian tube orifices Oropharynx: Base of tongue with normal mucosa, posterior visualization of tonsil area within normal, vallecular clear and free of masses Hypopharynx: No significant pooling of secretions, free of masses, clear piriform sinuses Larynx: Epiglottis, arytenoids, and AE folds: mild intra-arytenoid edema. Mild erythema diffusely present True vocal cords: asymmetrically mobile, left weakness observed, no polyps, no mucosal lesions, no glottic gap during phonation Mild glottic and subglottic edema without obstruction Swallow performed with adequate elevation of larynx and closure of epiglottis. Airway widely patent during inspiration. Shahbaz Mills 10/23/2024 PAST MEDICAL HISTORY Past Medical History: Diagnosis Date Allergic rhinitis 07/26/2024 Anxiety 07/26/2024 Bipolar 2 disorder (HCC) 07/26/2024 CKD (chronic kidney disease) stage 3, GFR 30-59 ml/min ([facility]) 07/26/2024 HTN (hypertension) 07/26/2024 Hyperlipidemia 07/26/2024 [place] (obstructive sleep apnea) 07/26/2024 Past Surgical History: Procedure Laterality Date ANAL FISTULOTOMY BRAIN SURGERY BREAST SURGERY CARPAL TUNNEL RELEASE REPLACEMENT TOTAL KNEE BILATERAL History reviewed. No pertinent family history. Social History Tobacco Use Smoking status: Never Passive exposure: Never Smokeless tobacco: Never MEDICATIONS Current Outpatient Medications: atorvastatin (LIPITOR) 20 MG tablet, Take 20 mg by mouth daily., Disp: , Rfl: buPROPion (WELLBUTRIN XL) 300 MG 24 hr tablet, Take 300 mg by mouth every morning. Swallow whole; do not crush, chew, or divide., Disp: , Rfl: chlorhexidine (PERIDEX) 0.12 % oral solution, , Disp: , Rfl: ciprofloxacin-dexAMETHasone (CIPRODEX) 0.3-0.1 % otic suspension, , Disp: , Rfl: escitalopram (LEXAPRO) 10 MG tablet, Take 10 mg by mouth daily., Disp: , Rfl: famotidine (PEPCID) 10 MG tablet, Take 20 mg by mouth 2 (two) times a day., Disp: , Rfl: fluticasone (FloNASE) 50 mcg/spray nasal spray, 1 spray into each nostril., Disp: , Rfl: gabapentin (NEURONTIN) 300 MG capsule, Take 300 mg by mouth 3 (three) times a day., Disp: , Rfl: LORazepam (ATIVAN) 0.5 MG tablet, Take 0.5 mg by mouth., Disp: , Rfl: trospium (SANCTURA XR) 60 MG extended release capsule, , Disp: , Rfl: valsartan (DIOVAN) 80 MG tablet, Take 80 mg by mouth daily., Disp: , Rfl: Vyvanse 10 MG capsule, , Disp: , Rfl: ALLERGIES Allergies Allergen Reactions Lisinopril Cough and Other (See Comments) VISIT ORDERS 1. Dysphonia 2. Vocal cord paresis 3. Gastroesophageal reflux disease without esophagitis 4. Memory loss Shahbaz Mills MD documented in this encounter Plan of Treatment Upcoming Encounters Date Type Department Care Team (Late st Contact Info) Description 06/11/2025 11:00 AM EDT Office Visit [facility] [address] [address] Shahbaz Mills MD [address] [place] [address] documented as of this encounter Visit Diagnoses Diagnosis Dysphonia- Primary Vocal cord paresis Unspecified paralysis of vocal cords or larynx Gastroesophageal reflux disease without esophagitis Esophageal reflux Memory loss documented in this encounter Care Teams Collection Supervisor Relationship Specialty Start Date End Date Nani Fowler PA [address] [place] [id number] PCP - General 07/26/24 documented as of this encounter
--- OUTSIDE RECORDS SUMMARY | 2024-11-21 16:25 | XMS_ITS ---
Author Name [facility] Organization Unknown History of Medication Use Medication Directions Dispensed Refills Start Date End Date Stat us famotidine (PEPCID) 40 MG tablet TAKE ONE TABLET BY MOUTH EVERY DAY 10/24/2024 active atorvastatin (LIPITOR) 20 MG tablet Take 20 mg by mouth daily. active fluticasone (FloNASE) 50 mcg/spray nasal spray 1 spray into each nostril. active buPROPion (WELLBUTRIN XL) 300 MG 24 hr tablet Take 300 mg by mouth every morning. Swallow whole; do not crush, chew, or divide. active Problems Problem Status Onset Date Problem Type Date of Resolution Source CKD (chronic kidney disease) stage 3, GFR 30-59 ml/min active 2024-07-26 [facility] Gastroesophageal reflux disease without esophagitis active EncounterDiagnosisAct [facility] Chronic neck pain active 2020-11-27 ProblemAct [facility] Endophthalmitis, 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 ProblemAct [facility] Family history of coronary artery disease active 2021-05-30 ProblemAct [facility] T S/p total knee replacement, bilateral active 2017-10-05 ProblemAct [facility] Age-related osteoporosis without current pathological fracture active 2017-10-05 ProblemAct [facility] Meningioma active 2021-07-07 ProblemAct [facility] History of adult respiratory distress syndrome (ARDS) active 2017-10-05 ProblemAct [facility] [place] (obstructive sleep apnea) active 2024-07-26 ProblemAct [facility] Do not resuscitate active 2021-05-30 ProblemAct [facility] Anxiety active 2024-07-26 ProblemAct [facility] Vitamin B12 deficiency active 2019-08-30 ProblemAct [facility] History of alcohol abuse active 2017-10-05 ProblemAct [facility] Hyperlipidemia active 2024-07-[address] HTN (hypertension) active 2024-07-26 ProblemAct [facility] 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 2022-05-19 ProblemAct [facility] Restless leg syndrome active 2018-09-26 ProblemAct [facility] Insomnia active 2024-07-26 ProblemAct [facility] Epiretinal membrane (ERM) of both eyes active 2022-05-19 ProblemAct [facility] Exogenous hypertriglyceridemia active 2023-08-18 ProblemAct [facility] Chronic pain of both knees active 2021-12-10 ProblemAct [facility] Bipolar II disorder active 2019-03-28 ProblemAct [facility] Cobblestone retinal degeneration, bilateral active 2022-05-19 ProblemAct [facility] T Migraine headache active 2017-10-05 ProblemAct [facility] 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 ProblemAct [facility] Allergic rhinitis active 2024-07-26 ProblemAct [facility] Carpal tunnel syndrome of right wrist active 2019-08-16 ProblemAct [facility] Chronic constipation active 2022-10-08 ProblemAct [facility] Muscular deconditioning active 2022-10-08 ProblemAct [facility] Impaired fasting glucose active 2020-06-05 [facility] Immunizations Vaccine Date Source Lot Number Status Influenza, Unspecified 05/31/2018 [facility] UNK co mpleted Influenza, Unspecified 06/11/2016 [facility] [id number] co mpleted Influenza Virus Trivalent Sp lit Vaccine (MDV) IM 07/07/2022 [facility] [id number] completed Influenza Virus Trivalent Sp lit Vaccine (MDV) IM 07/05/2019 [facility] [id number] completed Influenza Virus Trivalent Sp lit Vaccine (MDV) IM 08/17/2023 [facility] [id number] completed Influenza, Unspecified 07/07/2022 [facility] [id number] co mpleted Zoster Vaccine Recombinant (Shingrix) 03/01/2019 [facility] [id number] completed Tdap 05/10/2012 [facility] UNK completed Influenza Virus Trivalent Sp lit Vaccine (MDV) IM 05/31/2018 [facility] UNK completed Influenza, Unspecified 07/02/2020 [facility] [id number] co mpleted Influenza, Unspecified 08/09/2021 [facility] [id number] co mpleted Influenza High-Dose Quadriva lent,(FLUZONE HIGH-DOSE), Perservative Free IM 0.7 mL 65 years and older 08/09/2021 [facility] [id number] completed Influenza Virus Trivalent Sp lit Vaccine (MDV) IM 08/09/2021 [facility] [id number] completed Influenza Virus Trivalent Sp lit Vaccine (MDV) IM 06/11/2016 [facility] [id number] completed Influenza Virus Trivalent Sp lit Vaccine (MDV) IM 09/11/2015 [facility] [id number] completed Influenza, Quadrivalent (FLU ARIX, AFLURIA, FLULAVAL, FLUZONE) Preservative Free IM 07/05/2019 [facility] [id number] completed Influenza High-Dose Trivalen t,(FLUZONE HIGH-DOSE), Perservative Free IM 0.5 mL 65 years and older 06/11/2016 [facility] [id number] completed Pneumococcal Polysaccharide 23-Valent 05/30/2020 [facility] UN completed Zoster Vaccine Recombinant (Shingrix) 05/16/2019 [facility] UNK completed Influenza High-Dose Quadriva lent,(FLUZONE HIGH-DOSE), Perservative Free IM 0.7 mL 65 years and older 07/07/2022 [facility] [id number] completed Td, Unspecified 08/23/2023 [facility] [id number] completed Influenza, Quadrivalent (FLU ARIX, AFLURIA, FLULAVAL, FLUZONE) Preservative Free IM 09/11/2015 [facility] [id number] completed Zoster Vaccine Live/Attenuated (Zostavax) 06/10/2012 [facility] UNK completed Pneumococcal Conjugate 13-Valent 06/11/2016 [facility] UNK completed Influenza, Unspecified 05/16/2019 [facility] co mpleted Pneumococcal Conjugate 13-Valent 07/05/2019 [facility] UN completed Influenza High-Dose Trivalen t,(FLUZONE HIGH-DOSE), Perservative Free IM 0.5 mL 65 years and older 05/31/2018 [facility] completed Encounters Encounter Type Encounter Reason Primary Diagnosis Location Date Ambulatory Sore Throat Sore Throat [facility]24 [facility] 07/[facility]/2024 Care Team Organization Name Specialty Phone Email Start Date End [facility] 08[facility]02/2024 [facility] 07/26/2024 [facility] 07/26/2024
--- OUTSIDE RECORDS SUMMARY | 2024-11-21 16:25 | XMS_ITS | Encounter Summary ---
Author Organization [facility] Address [address] [address] Phone Care Team Providers Care [employer] Machine Helper Name Role Phone Nani Fowler PA-C Primary Care Provider Encounter Details Date Type Department Care Team (Late st Contact Info) Description 11/13/2024 Orders Only [facility] [address] [place] [phone] Osorio Gallegos MD [facility] [address] Stage 3b chronic kidney disease (HCC) Social History Tobacco Use Types Packs/Day Years Used Date Smoking Tobacco: Never Assessed Comments Unknown Sex and Gender Information Value Date Recorded Sex Assigned at Not on file Legal Sex Female 11:52 AM EST Gender Identity Not on file Sexual Orientation Not on file documented as of this encounter Plan of Treatment Upcoming Encounters Date Type Department Care Team (Late st Contact Info) Description 12/19/2024 2:30 PM EDT Office Visit [facility] [address] [address] Osorio Gallegos MD [address] [address] documented as of this encounter Visit Diagnoses Diagnosis Stage 3b chronic kidney disease (HCC) documented in this encounter Care Teams [employer] Machine Helper Relationship Specialty Start Date End Date Nani Fowler PA-C [address] [place] [phone] PCP - General Internal Medicine 07/29/23 documented as of this encounter
--- OUTSIDE RECORDS SUMMARY | 2024-11-21 16:25 | XMS_ITS | Clinical Summary ---
Author Organization [facility] ity Address [address] [place] [address] Care Team Providers Care Nurse Gynecology Name Role Phone Elmer Mcelroy MD Primary Care Provider [phone] Surgical History Surgery Date Site/Laterality Comments COLONOSCOPY 3.5, 8 PROCEDURE: HISTORICAL COLONOSCOPY; COMMENT: due 2015, hypertrophy of anal papillae TOTAL KNEE ARTHROPLASTY 2014 Bilateral PROCEDURE: HISTORICAL TOTAL KNEE REPLACE OTHER SURGICAL HISTORY 1997 PROCEDURE: HISTORY OTHER; COMMENT: breast reduction OTHER SURGICAL HISTORY 2002 PROCEDURE: PULMONOLOGY BRONCHOSCOPY; COMMENT: ARDS, fever Medical History Medical History Date Comments Allergic rhinitis 10/05/2017 DX:Allergic rh initis Anxiety 10/05/2017 DX:Anxiety History of alcohol abuse 10/05/2017 DX:Hist ory of alcohol abuse; COMMENT: Quit 2008, AA HLD (hyperlipidemia) 10/05/2017 DX:HLD (hyp erlipidemia) HTN (hypertension) 10/05/2017 DX:HTN (hyper tension) Insomnia 10/05/2017 DX:Insomnia Migraine headache 10/05/2017 DX:Migraine he adache CHEYENNE (obstructive sleep apnea) 10/05/2017 DX :CHEYENNE (obstructive sleep apnea); COMMENT: On CPAP 4-18 cm H2O Osteoporosis 10/05/2017 DX:Osteoporosis S/p total knee replacement, bilateral 10/05/2017 DX:S/p total knee replacement, bilateral History of adult respiratory distress syndrome (ARDS) 10/05/2017 DX:History of adult respirat ory distress syndrome (ARDS); COMMENT: Fiberoptic Bronchoscopy for cultures : 4 [facility] Family History Medical History Relation Name Comments Liver cancer Aunt 1 paternal Colon cancer Aunt 2 maternal Other: heart disease Father d/c 47 yr Breast cancer Mother d/c 58 yr Relation Name Status Comments Aunt 1 paternal Aunt 2 maternal Father Mother Social History Tobacco Use Types Packs/Day Years Used Date Smoking Tobacco: Former Smokeless Tobacco: Never Alcohol Use Standard Drinks/Week Comments No 0 (1 standard drink = 0.6 oz pur e alcohol) Comments Unknown Sex and Gender Information Value Date Recorded Sex Assigned at Not on file Legal Sex Female 9:46 AM EST Gender Identity Not on file Sexual Orientation Not on file Obstetrics History Plan of Treatment Health Maintenance Due Date Last Done Comments DTaP,Tdap,and Td Vaccines (1 - Tdap) 1969 Pneumococcal Vaccine: 50+ Years (1 of 1 - PCV) 2000 Zoster Vaccines (1 of 2) 2000 Cholesterol Screening (Lipid Panel) 08/11/2022 Colorectal Cancer Screening: Colonoscopy 08/11/2022 Depression Screening 08/11/2022 Falls Risk Assessment 08/11/2022 Hepatitis C Screening 08/11/2022 Social Influencers of Health Screening 08/11/2022 Hypertension/CHF/CAD Annual BMP Blood Test 08/26/2022 COVID-19 Vaccine ( - season) 2024 Influenza Vaccine (#1) 2024 Breast Cancer Screening 10/05/2024 10/05/19 23, 10/03/2021, 08/12/2020, Additional history exists RSV Immunization Patients 60+ Years Old (1 - 1-dose 75+ series) 2025 Osteoporosis Screening (Bone Density Screening) 2028 2018 HIB Vaccines Aged Out No longer eligi ble based on patient's age to complete this topic HPV Vaccines Aged Out No longer eligi ble based on patient's age to complete this topic Hepatitis A Vaccines Aged Out No long er eligible based on patient's age to complete this topic Hepatitis B Vaccines Aged Out No long er eligible based on patient's age to complete this topic IPV Vaccines Aged Out No longer eligi ble based on patient's age to complete this topic MMR Vaccines Aged Out No longer eligi ble based on patient's age to complete this topic Meningococcal ACWY Vaccine Aged Out N o longer eligible based on patient's age to complete this topic Meningococcal B Vacine Aged Out No lo nger eligible based on patient's age to complete this topic RSV Immunization Patients Under 20 months Aged Out No longer eligible based on patient's age to complete this topic Varicella Vaccines Aged Out No longer eligible based on patient's age to complete this topic Procedures Procedure Name Priority Date/Time Associated Diagnosis Comments [facility] SCREENING DIGITAL Routine 10/05/2022 3:29 PM EST Encounter for screening mammogram for malignant neoplasm of breast [facility] DEXA AXIAL SKELETON Routine 2018 11:50 AM EST Other specified disorders of bone density and structure, unspecified site from Last 3 Months or Most Recently Relevant to Health Maintenance Results * [facility] SCREENING DIGITAL (10/05/2022 3:29 PM EST) Anatomical Region Laterality Modality Mammography 10/05/2022 2:21 PM EST Narrative 10/05/2022 3:29 PM EST [facility] Diagnostic Imaging Department [address] [place] [address] Patient: ??KATIE LACKEY ?/Age/Sex: 1950 72 - F Unit#: ??[id number] ? Location/Status: ??SPDIMAM/REG CLI ? Mnemonic/Ordering Site: ??DIGSC/SPMAM Ordering Physician: ??ELMER MCELROY MD [facility] Screening Digital - 10/05/22 143 EXAM: [facility] Screening Digital EXAM DATE AND TIME: 10/05/2022 2:39 PM HISTORY: ??Screening. Reduction mammoplasty in 2001. Mother had breast carcinoma at age 48. COMPARISON: ??10/03/21, 08/12/20, 11/02/18, 10/27/17 TECHNIQUE: CC and MLO views of both breasts were obtained using full field digital mammography. Bilateral digital breast tomosynthesis was performed in the MLO projection. Computer aided detection with Conjure 7.2-H and [employer] Software 3D 3.1 was employed. TISSUE DENSITY: a. The breasts are almost entirely fatty. FINDINGS: Reduction mammoplasty sequelae are again noted. No suspicious masses, grouped microcalcifications, or developing architectural distortion are seen. Few benign secretory calcifications are again noted. There are multiple skin calcifications. The vascularity is unremarkable. IMPRESSION: Stable mammographic appearance of the breasts. ??No evidence of malignancy is seen. A negative mammogram in the presence of a clinically suspicious palpable abnormality does not preclude the possibility of malignancy or alter the indications for biopsy. BI-RADS: ??Category 2: Benign RECOMMENDATION(S): 1: Routine screening mammogram BILATERAL in 1 year. 57952, 69236 3342F, 7025F Dictating Physician: ??CHERRI SKINNER MD Electronically Signed by: ??CHERRI SKINNER MD Dic Date/Time: ??10/05/22 1528 Sign date/Time: ??10/05/22 1529 Procedure Note Cherri Skinner MD - 10/15/2023 [facility] Diagnostic Imaging Department [address] [place] [address] Patient: KATIE LACKEY Ezequiel /Age/Sex: 1950 72 - F Unit#: [id number] Location/Status: SPDIMAM/REG CLI Mnemonic/Ordering Site: [facility] [place] Ordering Physician: ELMER MCELROY MD [facility] Screening Digital - 10/05/22 - 1439 EXAM: [facility] Screening Digital EXAM DATE AND TIME: 10/05/2022 2:39 PM HISTORY: Screening. Reduction mammoplasty in 2001. Mother had breastcarcinoma at age 48. COMPARISON: 10/03/21, 08/12/20, 11/02/18, 10/27/17 TECHNIQUE: CC and MLO views of both breasts were obtained using fullfield digital mammography. Bilateral digital breast tomosynthesis was performedin the MLO projection. Computer aided detection with Conjure 7.2-H and[employer] Software 3D 3.1 was employed. TISSUE DENSITY: a. The breasts are almost entirely fatty. FINDINGS: Reduction mammoplasty sequelae are again noted. No suspicious masses,grouped microcalcifications, or developing architectural distortion are seen. Fewbenign secretory calcifications are again noted. There are multiple skin calcifications. The vascularity is unremarkable. IMPRESSION: Stable mammographic appearance of the breasts. No evidence of malignancyis seen. A negative mammogram in the presence of a clinically suspicious palpable abnormality does not preclude the possibility of malignancy or alter the indications for biopsy. BI-RADS: Category 2: Benign RECOMMENDATION(S): 1: Routine screening mammogram BILATERAL in 1 year. 13754, 65382 3342F, 7025F Dictating Physician: CHERRI SKINNER MD Electronically Signed by: CHERRI SKINNER MD Dic Date/Time: 10/05/22 1528 Sign date/Time: 10/05/22 1529 us Elmer Mcelroy MD IMG BI PROCEDURES Final Re sult * [facility] DEXA AXIAL SKELETON (2018 11:50 AM EST) Anatomical Region Laterality Modality Mammography 2018 11:0 7 AM EST Narrative 2018 11:50 AM EST [facility] Diagnostic Imaging Department [address] [place] [address] Patient: ??KATIE LACKEY ?/Age/Sex: 1950 68 - F Unit#: ??[id number] ? Location/Status: ??SPDIMAM/REG CLI ? Mnemonic/Ordering Site: ??MAMDEXAAX/SPMAM Ordering Physician: ??ELMER MCELROY MD [facility] Dexa Axial Skeleton - 09/19/181143 HISTORY: ??The patient is a 68-year-old postmenopausal female with clinical concern for metabolic bone disease. FINDINGS: ??Dual energy x-ray absorptiometry of the lumbar spine and femurs is performed. The mean bone mineral density at L1-L4 is 0.965 gm/cm2 which is 82% of that of young normals and 95% of that of age matched controls. This yields a T-score of -1.8 and a Z-score of -0.4 which is diagnostic of osteopenia. The mean bone mineral density of the femurs bilaterally is 0.852 gm/cm2 which is 85% of that of young normals and 99% of that of age matched controls. ??This yields a T-score of -1.2 and a Z-score of -0.1 which is diagnostic of osteopenia. The T-score of the right femoral neck is -2.2 and that of the left femoral neck is -1.7 which is diagnostic of osteopenia. IMPRESSION: 1. Osteopenia. ??There has been an increase of 2.1% in bone mineral density in the lumbar spine since the prior examination of 10/05/2011. ??There has been an increase of 4.4% in bone mineral density in the right femur and an increase of 4.9% in bone mineral density in the left femur. 2. FRAX analysis yields a 10-year probability of major osteoporotic fracture of 12.4% and a 10-year probability of hip fracture of 2.4%. Code 42089 Dictating Physician: ??MACIEL PIERRE MD Electronically Signed by: ??MACIEL PIERRE MD Dic Date/Time: ??09/19/18 1149 Sign date/Time: ??09/19/18 1150 Procedure Note Maciel Pierre MD - 09/02/2022 [facility] Diagnostic Imaging Department [address] [place] [address] Patient: KATIE LACKEY Ezequiel LeeB./Age/Sex: 1950 - 68 - F Unit#: [id number] [facility]ing Site: [facility] [place] Ordering Physician: ELMER MCELROY MD [facility] Dexa Axial Skeleton - 09/19/18 - 1141 HISTORY: The patient is a 68-year-old postmenopausal female withclinical concern for metabolic bone disease. FINDINGS: Dual energy x-ray absorptiometry of the lumbar spine and femursis performed. The mean bone mineral density at L1-L4 is 0.965 gm/cm2 which is82% of that of young normals and 95% of that of age matched controls. Thisyields a T-score of -1.8 and a Z-score of -0.4 which is diagnostic of osteopenia. The mean bone mineral density of the femurs bilaterally is 0.852 gm/ex6gsqox is 85% of that of young normals and 99% of that of age matched controls.This yields a T-score of -1.2 and a Z-score of -0.1 which is diagnostic of osteopenia. The T-score of the right femoral neck is -2.2 and that of theleft femoral neck is -1.7 which is diagnostic of osteopenia. IMPRESSION: 1. Osteopenia. There has been an increase of 2.1% in bone mineral densityin the lumbar spine since the prior examination of 10/05/2011. There has beenan increase of 4.4% in bone mineral density in the right femur and anincrease of 4.9% in bone mineral density in the left femur. 2. FRAX analysis yields a 10-year probability of major osteoporoticfracture of 12.4% and a 10-year probability of hip fracture of 2.4%. Code 45047 Dictating Physician: MACILE PIERRE MD Electronically Signed by: MACIEL PIERRE MD Dic Date/Time: 09/19/18 1149 Sign date/Time: 09/19/18 1150 Elmer Mcelroy MD IMG BI PROCEDURES Final Re sult from Last 3 Months or Most Recently Relevant to Health Maintenance Care Teams Nurse Gynecology Relationship Specialty Start [place] [address] [place] [address] PCP - General Pediatrics 09/22/17
--- OUTSIDE RECORDS SUMMARY | 2024-11-21 16:25 | XMS_ITS | Clinical Summary ---
Author Organization [facility] Address [address] [place] [address] Care Team Providers Care Wire Twisting Machine Operator Name Role Phone Nani Fowler Primary Care Provider [phone] Allergies Active Allergy Reactions Criticality Noted Date Comments Lisinopril Cough,Other (See Comments) Low 9 Medications Medication Sig Dispensed Refills Start Date End Date Status famotidine (PEPCID) 10 MG tablet Take 20 mg by mouth 2 (two) times a day. Active atorvastatin (LIPITOR) 20 MG tablet Take 20 mg by mouth daily. Active gabapentin (NEURONTIN) 300 MG capsule Take 300 mg by mouth 3 (three) times a day. Active valsartan (DIOVAN) 80 MG tablet Take 80 mg by mouth daily. Active escitalopram (LEXAPRO) 10 MG tablet Take 10 mg by mouth daily. Active buPROPion (WELLBUTRIN XL) 300 MG 24 hr tablet Take 300 mg by mouth every morning. Swallow whole; do not crush, chew, or divide. Active fluticasone (FloNASE) 50 mcg/spray nasal spray 1 spray into each nostril. Active LORazepam (ATIVAN) 0.5 MG tablet Take 0.5 mg by mouth. 07/26/2023 Active ciprofloxacin-dexAMET Hasone (CIPRODEX) 0.3-0.1 % otic suspension 08/04/2024 Active chlorhexidine (PERIDEX) 0.12 % oral solution 08/07/2024 Active trospium (SANCTURA XR) 60 MG extended release capsule 08/08/2024 Active Vyvanse 10 MG capsule 08/17/2024 Act tayla famotidine (PEPCID) 40 MG tabletIndications:Gas troesophageal reflux disease without esophagitis TAKE ONE TABLET BY MOUTH EVERY DAY 30 tablet 3 10/24/2024 Active Active Problems Problem Noted Date Diagnosed Date Allergic rhinitis 07/26/2024 Anxiety 07/26/2024 CKD (chronic kidney disease) stage 3, GFR 30-59 ml/min 07/26/2024 Hyperlipidemia 07/26/2024 HTN (hypertension) 07/26/2024 Insomnia 07/26/2024 CHEYENNE (obstructive sleep apnea) 07/26/2024 Exogenous hypertriglyceridemia 08/18/2023 Chronic constipation 10/08/2022 Muscular deconditioning 10/08/2022 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 She does not want to be intubated or resuscitated. We do need to have a more nuanced conversation. We will discuss this in detail at her next appointment. Family history of coronary artery disease 2020 Overview (07/31/2024): aubrey age 47, son SD age 42 Chronic neck pain 11/27/2020 Overview (07/31/2024): Much better with PT Last Assessment & Plan: Pain is just about resolved, continue home exercises. Impaired fasting glucose 06/05/2020 Overview (07/31/2024): Last Assessment & Plan: Dietary counseling was given Vitamin B12 deficiency 08/30/2019 Carpal tunnel syndrome of right wrist 08/16/2019 Overview (07/31/2024): Last Assessment & Plan: Doing much better with nocturnal splinting. Continue the same. She will follow- up as scheduled to have her nerve conduction study. If it does confirm that she has carpal tunnel syndrome as long as her symptoms are well controlled the splint is all that I would recommend. She can follow-up if she wishes with her orthopedist. Bipolar II disorder 03/28/2019 Overview (07/31/2024): Sees therapist Alozno Kelly and psychiatrist Last Assessment & Plan: Doing well with current medication. 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 Overview (07/31/2024): Resolved with some residual vision loss Age-related osteoporosis wit hout current pathological fracture 10/05/2017 Overview (07/31/2024): Bone density January 2022, [facility] History of adult respiratory distress syndrome ( ARDS) 10/05/2017 Overview (07/31/2024): Fiberoptic Bronchoscopy for cultures : 4.14.2002 [facility] History of alcohol abuse 10/05/2017 Overview (07/31/2024): Quit 2008, AA Migraine headache 10/05/2017 S/p total knee replacement, bilateral 10/05/2017 Encounters Date Type Department Care Team Description 10/24/2024 Refill [facility] [address] [phone] Shahbaz Mills MD Gastroesophageal reflux disease without esophagitis (Primary Dx) 10/23/2024 11:45 AM EST Office Visit [facility] [address] [phone] Shahbaz Mills MD Dysphonia (Primary Dx); Vocal cord paresis; Gastroesophageal reflux disease without esophagitis; Memory loss 09/21/2024 Telephone [facility] [address] [facility] [place] [address] Shahbaz Mills MD 09/01/2024 9:15 AM EST Office Visit [facility] [address] [facility] [place] [phone] Jennifer Sanford PA-C Sialadenitis (Primary Dx) from Last 3 Months Immunizations Name Administration Dates Next Due Influenza High-Dose Quadrivalent,(FLUZONE HIGH-DOSE), Perservative Free IM 0.7 mL 65 years and older 07/07/2022,08/09/2021 Influenza High-Dose Trivalen t,(FLUZONE HIGH-DOSE), Perservative Free IM 0.5 mL 65 years and older 05/31/2018,06/11/2016 Influenza Virus Trivalent Sp lit Vaccine (MDV) IM 08/17/2023,07/07/2022,08/09/2021,07/05,05/31/2018,06/11/2016,09/11/2015 Influenza, Quadrivalent (FLU ARIX, AFLURIA, FLULAVAL, FLUZONE) Preservative Free IM 07/05/2019,09/11/2015 Influenza, Unspecified 07/07/2022,2020,07/02/2020,05/16,05/31/2018,06/11/2016 Pneumococcal Conjugate 13-Valent 019,07/05/2019,06/11/2016,06/11 Pneumococcal Polysaccharide 23-Valent 05/30/2020 ,05/30/2020 Td, Unspecified 08/23/2023 Tdap 05/10/2012 Zoster Vaccine Live/Attenuat ed (Zostavax) 06/10/2012 Zoster Vaccine Recombinant (Shingrix) 05/16/2019 ,03/01/2019 Social History Tobacco Use Types Packs/Day Years Used Date Smoking Tobacco: Never Passive Smoke Exposure: Never Smokeless Tobacco: Never Sex and Gender Information Value Date Recorded Sex Assigned at Not on file Gender Identity Not on file Sexual Orientation Not on file Last Filed Vital Signs Vital Sign Reading Time Taken Comments Blood Pressure - - Pulse - - Temperature - - Respiratory Rate - - Oxygen Saturation - - Inhaled Oxygen Concentration - - Weight 77.1 kg (170 lb) 10/23/2024 11:21 AM EST Height 162.6 cm (5' 4 ) 10/23/2024 11:21 AM EST Body Mass Index 29.18 10/23/2024 11:21 AM EST Plan of Treatment Upcoming Encounters Date Type Department Care Team (Late st Contact Info) Description 06/11/2025 11:00 AM EDT Office Visit [facility] [address] [facility] [place] [address] Shahbaz Mills MD [address] [address] Health Maintenance Due Date Last Done Comments Hepatitis C Virus Screening 1950 Mammogram 1990 Colonoscopy 1995 DXA Bone Density (Females,Ages 65 and older) 2015 Influenza Vaccine 04/13/2024 08/17/2023, , 07/07/2022, Additional history exists COVID-19 Vaccine ( season) 2024 07/01/2022, 12/10/2021, 07/08/2021, Additional history exists RSV Vaccine 60 years and older and Patients (1 - 1-dose 75+ series) 2025 DTaP/Tdap/Td Vaccines (3 - Td or Tdap) 08/23/2033 08/23/2023, 05/10/2012 Zoster (Shingles) Vaccine Completed 2018, 03/01/2019, 06/10/2012 Pneumococcal Vaccines 50+ Completed 2019, 05/30/2020, 07/05/2019, Additional history exists Hepatitis B Vaccines Aged Out No long er eligible based on patient's age to complete this topic Care Teams Wire Twisting Machine Operator Relationship Specialty Start Date End Date Nani Fowler PA [address] [place] [address] [place] [address] PCP - General 07/26/24
--- OUTSIDE RECORDS SUMMARY | 2024-11-21 16:25 | XMS_ITS | Encounter Summary ---
Author Organization [facility] Address [address] [place] [id number] Care Team Providers Care Supervisor Blast Furnace Name Role Phone Nani Fowler Primary Care Provider Reason for Visit * Reason Comments Medication Refill Encounter Details Date Type Department Care Team (Late Contact Info) Description 10/24/2024 Refill [facility] [address] [phone] Shahbaz Mills MD 15 Yumiko Mcgrath [address] [place] [phone] Gastroesophageal reflux disease without esophagitis (Primary Dx) Social History Tobacco Use Types Packs/Day Years Used Date Smoking Tobacco: Never Passive Smoke Exposure: Never Smokeless Tobacco: Never Sex and Gender Information Value Date Recorded Sex Assigned at Not on file Gender Identity Not on file Sexual Orientation Not on file documented as of this encounter Plan of Treatment Upcoming Encounters Date Type Department Care Team (Late Contact Info) Description 06/11/2025 11:00 AM EDT Office Visit [facility] [address] [phone] Shahbaz Mills MD [address] [place] [phone] documented as of this encounter Visit Diagnoses Diagnosis Gastroesophageal reflux disease without esophagitis- Primary Esophageal reflux documented in this encounter Care Teams Supervisor Blast Furnace Relationship Specialty Start Date End Date Nani Fowler PA [address] [place] [id number] PCP - General 07/26/24 documented as of this encounter
--- OUTSIDE RECORDS SUMMARY | 2024-11-21 16:25 | XMS_ITS | Clinical Summary ---
Author Organization [facility] Address [address] [address] Phone Care Team Providers Care Mock Up Maker Name Role Phone Nani Fowler PA-C Primary Care Provider Allergies Active Allergy Reactions Criticality Noted Date Comments Lisinopril Other (see comments) 09/21/2018 Medications atorvastatin (LIPITOR) 20 MG tablet 2 Active buPROPion XL (WELLBUTRIN XL) 300 MG 24 hr tablet 3 Active escitalopram (LEXAPRO) 20 MG tablet 3 Active fluticasone (FLONASE) 50 MCG/ACT nasal spray Administer 1 spray into affected nostril(s) in the morning. 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 She should avoid nonsteroidals. Meningioma 07/07/2021 08/17/2023 Overview (08/17/2023): Resected August 2021 Last Assessment & Plan: Clinically she doing well, follow-up as planned with neurosurgery Do not resuscitate 05/30/2021 08/17/2023 Overview (08/17/2023): Last Assessment & Plan: We had a brief discussion regarding advanced care planning. She does not want to be intubated or resuscitated. We do need to have a more nuanced conversation. We will discuss this in detail at her next appointment. Chronic neck pain 11/27/2020 08/17/2023 Overview (08/17/2023): Much better with PT Last Assessment & Plan: Pain is just about resolved, continue home exercises. Impaired fasting glucose 06/05/2020 023 Overview (08/17/2023): Last Assessment & Plan: Dietary counseling was given Vitamin B12 deficiency 08/30/2019 3 Carpal tunnel syndrome of right wrist 08/16/2019 08/17/2023 Overview (08/17/2023): Last Assessment & Plan: Doing much better [...] with her orthopedist. Bipolar II disorder 03/28/2019 08/17/2023 Overview (08/17/2023): Sees therapist Alonzo Kelly and psychiatrist Last Assessment & Plan: Doing well with current medication. Continue the same and follow-up as planned with psychiatry Restless leg syndrome 09/26/2018 08/17/2023 Overview (08/17/2023): Better with gabapentin Last Assessment & Plan: Well-controlled, continue current medication Anxiety 10/05/2017 08/17/2023 Hypertension 10/05/2017 08/17/2023 Overview (08/17/2023): Last Assessment & Plan: Well-controlled, continue current medication Insomnia 10/05/2017 08/17/2023 Resolved Problems Problem Noted Date Diagnosed Date Resolved Date Obese class I 08/17/2023 08/17/2023 08/17/2023 Chronic constipation 10/08/2022 08/17/2023 023 Overview (08/17/2023): Last Assessment & Plan: Try taking prunes daily. If this is not helpful, adding a daily fiber supplement or MiraLAX could be a good choice. Disorder of skeletal muscle 10/08/2022 08/17/2023 08/17/2023 Overview (08/17/2023): Last Assessment & Plan: Reviewed exercises to improve core and lower extremity strength. Encouraged her to do more walking. Exercise handout given. If this is not helpful, can be referred to physical therapy. Follow-up as planned with new PCP in [place] in November. 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 Continue home exercise program and will start physical therapy this summer Family history of coronary arteriosclerosis 05/30/2021 08/17/2023 08/17/2023 Overview (08/17/2023): fatjohnie age 47, son [place] age 42 Age-related osteoporosis wit hout current pathological fracture 09/21/2018 08/17/2023 08/17/2023 Overview (08/17/2023): Bone density January 2022, [facility] Alcohol abuse 09/21/2018 08/17/2023 08/17/2023 Overview (08/17/2023): Last Assessment & Plan: She is drinking more and I strongly encouraged her to abstain. Especially want her to stop drinking prior to surgery to reduce the risk of complications including withdrawal, although if she is truly drinking 3 glasses of wine per night, it is unlikely that she will have withdrawal, but it is possible. Signs and symptoms were reviewed and if any these occur she is to let me know right away. Additionally alcohol use will impair if not making possible adequate treatment for depression. 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 08/17/2023 Overview (08/17/2023): Resolved with some residual vision loss Allergic rhinitis 10/05/2017 08/17/2023 08/17/2023 History of adult respiratory distress syndrome 10/05/2017 08/17/2023 08/17/2023 Overview (08/17/2023): Fiberoptic Bronchoscopy for cultures : 4.14.2002 [facility] History of alcohol abuse 10/05/2017 08/17/202301/2023 Overview (08/17/2023): Quit 2009, AA History of total knee arthroplasty 10/05/2017202208/17/2023 Migraine 10/05/2017 08/17/2023 08/17/2023 Obstructive sleep apnea syndrome 10/05/2017 08/17/2008/17/2023 Overview (08/17/2023): On CPAP 4-18 cm H2O Managed by pulmonary Last Assessment & Plan: Doing well with CPAP, continue the same Osteoporosis 10/05/2017 08/17/2023 08/17/2023 Encounters Date Type Department Care Team Description 11/13/2024 Orders Only [facility] [address] [address] Osorio Gallegos MD Stage 3b chronic kidney disease (HCC) from Last 3 Months Immunizations Name Administration Dates Next Due Influenza Split High Dose Pr eservative Free IM 05/31/2018,06/11/2016 Influenza, Quadrivalent, Pre servative Free 07/05/2019,09/11/2015 Influenza, Unspecified 07/07/2022,2021,08/09/2021,08/09,07/02/2020,07/05/2019,05/16/2019 ,05/31/2018,06/11/2016,09/11/2015 Moderna SARS-COV-2 12/10/2021, 1,11/01/2020,10/04 Pneumococcal Conjugate 13-Valent 019,07/05/2019,06/11/2016,06/11 Pneumococcal Polysaccharide 05/30/2020, 0 SARS-CoV-2, Unspecified 07/01/2022 Shingrix 05/16/2019,03/01/2019,03/01/2019 Tdap 05/10/2012 Zoster 06/10/2012 Social History Tobacco Use Types Packs/Day Years Used Date Smoking Tobacco: Never Assessed Tobacco Cessation:Counseling Given: No Comments Unknown Sex and Gender Information Value Date Recorded Sex Assigned at Not on file Legal Sex Female 11:52 AM EST Gender Identity Not on file Sexual Orientation Not on file Last Filed Vital Signs Vital Sign Reading Time Taken Comments Blood Pressure 128/84 08/15/2024 1:11 PM EST Pulse 73 08/15/2024 1:11 PM EST Temperature - - Respiratory Rate - - Oxygen Saturation 98% 08/15/2024 1:11 PM EST Inhaled Oxygen Concentration - - Weight 72.1 kg (159 lb) 08/15/2024 1:11 PM EST Height - - Body Mass Index - - Plan of Treatment Upcoming Encounters Date Type Department Care Team (Late st Contact Info) Description 12/19/2024 2:30 PM EDT Office Visit [facility] [address] [address] Osorio Gallegos MD [address] [phone] Health Maintenance Due Date Last Done Comments Breast Cancer Screening 1950 Colorectal Cancer Screening: Annual FOBT 1999 Colorectal Cancer Screening: Colonoscopy 1999 Colorectal Cancer Screening: Sigmoidoscopy 1999 Influenza Vaccine (#1) 2024 , 07/07/2022, 08/09/2021, Additional history exists Pneumococcal Vaccine: 65+ Years Completed 05/30/2020, 05/30/2020, 07/05/2019, Additional history exists Hepatitis B Vaccine Aged Out No longe r eligible based on patient's age to complete this topic Insurance Member Subscriber Plan / Payer (Ef fective 2012-Present) Name:Ziyad Jaky Ezequiel Relation to Subscriber:Self Name:Ziyad Jaky Ezequiel Payer ID:[id number] (NAIC) Type:Not on file Address: [place] [id number] [place] [id number] MEDICARE Care Teams Mock Up Maker Relationship Specialty Start Date End Date Nani Fowler PA-C [address] [place] [address] PCP - General Internal Medicine 07/29/23
--- OUTSIDE RECORDS SUMMARY | 2024-11-21 16:25 | XMS_ITS | Encounter Summary ---
Author Organization [facility] Address [address] [place] [address] Care Team Providers Care Highway Commissioner Name Role Phone Nani Fowler Primary Care Provider [phone] Encounter Details Date Type Department Care Team (Late st Contact Info) Description 08/15/2024 Scanned Document [facility] [address] [place] [address] Shahbaz Mills MD 15 Yumiko Mcgrath [address] [place] [address] [phone] Social History Tobacco Use Types Packs/Day Years Used Date Smoking Tobacco: Never Assessed Sex and Gender Information Value Date Recorded Sex Assigned at Not on file Gender Identity Not on file Sexual Orientation Not on file documented as of this encounter Plan of Treatment Upcoming Encounters Date Type Department Care Team (Late st Contact Info) Description 06/11/2025 11:00 AM EDT Office Visit [facility] [address] [facility] [place] [phone] Shahbaz Mills MD [address] [place] [phone] documented as of this encounter Visit Diagnoses Not on filedocumented in this encounter Care Teams Highway Commissioner Relationship Specialty Start Date End Date Nani Fowler PA [address] [place] [address] PCP - General 07/26/24 documented as of this encounter
--- OUTSIDE RECORDS SUMMARY | 2024-11-21 16:25 | XMS_ITS | Patient Health Record ---
Author Organization [facility] Address [address] [facility] [address] [place] [address] Care Team Providers Care County Library Director Name Role Phone ELMER MCELROY Primary Care Provider Unavaila Krupa Gutierrez Unavailable [phone] Reason For Referral No Information Medications Medication SIG (Take, Route, Frequency, Duration) Notes Start Date End Date Status Gabapentin 300 MG Orally 3 at night Active FLUoxetine HCl 20 MG 1 capsule in the mo rning Orally Twice a day Active LORazepam 0.5 MG 1 tablet as needed O rally TID, Prn Active Atorvastatin Calcium 10 MG 1 tablet Oral ly Once a day Active Triamterene-HCTZ 37.5-25 MG 1 tablet in the morning Orally Once a day Active Zolpidem Tartrate 10 MG 1 tablet at bedt kathy as needed Orally Once a day Active Plan Of Treatment No Information Insurance Providers Payer Name Payer Address Payer Phone Subscriber Number Group Number Insured Name Patient Relationship to Insured Coverage Start Date Coverage End Date MEDICARE [address] [facility] [place] [id number] [phone] [id number] KATIE BENITEZ Self - patient is the insured [facility] [address] [place] [address] [id number] KATIE BENITEZ Self - patient is the insured Medical (General) History Medical History History ICD Code Essential (primary) hypertension I10 Headache R51 Osteoarthritis of knee, unspecified M17. 9 Disorder of bone density and structure, unspecified M85.9 Major depressive disorder, single episod e, unspecified F32.9 Surgical History Surgery Date(Month/Year) Breast Reduction 1993 Double Knee Replacement 11/2014, 12/2014 Hospitalization History Reason Date(Month/Year) 2 Vaginal Deliveries See Surgical Hx
== END 2024-11-21 14:25 | disposition home or self-care (01) ==
PROVIDERS: PCP Physician Assistant Medical; Visit Provider Hospitalist
DX: F51.01 Primary insomnia (principal); G47.33 Obstructive sleep apnea (adult) (pediatric); Z99.89 Dependence on other enabling machines and devices; J45.20 Mild intermittent asthma, uncomplicated
CPT/HCPCS: 99214

== ENCOUNTER → 2024-11-21 13:33 | Outpatient (BNVA) | payer SELFPAY | PROVIDERS: PCP Physician Assistant Medical; Visit Provider Hospitalist | DX: F51.01 Primary insomnia (principal); J45.20 Mild intermittent asthma, uncomplicated; G47.33 Obstructive sleep apnea (adult) (pediatric); Z99.89 Dependence on other enabling machines and devices | CPT/HCPCS: 99212 ==

== ENCOUNTER → 2024-12-17 20:30 | Outpatient (REF) | payer MEDICARE, SELFPAY ==
--- OUTSIDE RECORDS SUMMARY | 2024-12-17 22:07 | XMS_ITS | Patient Health Record ---
Author Organization [employer] [facility] Address [address] [facility] [address] [place] [address] Care Team Providers Care Ergonomist Name Role Phone ELMER MCELROY Primary Care Provider Unavaila Krupa Gutierrez Unavailable [phone] Reason For Referral No Information Medications Medication [...] Coverage End Date MEDICARE [address] [facility] [place] [id number] KATIE BENITEZ Self - patient is the insured [facility] [address] [place] [address] [id number] KATIE BENITEZ Self - patient is the [...]
--- OUTSIDE RECORDS SUMMARY | 2024-12-17 22:07 | XMS_ITS | Clinical Summary ---
Author Organization [facility] Address [address] [address] Phone Care Team Providers Care Bakery Team Member Name Role Phone Nani Fowler PA-C Primary [...] Follow-up as planned with new PCP in [place] in November. 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 Continue home exercise program and will start physical therapy this summer Family history of coronary arteriosclerosis 05/30/2021 08/17/2023 08/17/2023 Overview (08/17/2023): fatjohnie age 47, son [place] age 42 Age-related osteoporosis wit hout current pathological fracture 09/21/2018 08/17/2023 08/17/2023 Overview (08/17/2023): Bone density January 2022, [facility] Alcohol abuse 09/21/2018 08/17/2023 08/17/2023 Overview (08/17/2023): [...] Only [facility] [address] [address] Osorio Gallegos MD Stage 3b [...] Visit [facility] [address] [address] Osorio Gallegos MD [address] [phone] Health Maintenance Due Date Last Done Comments Breast Cancer Screening 1950 Colorectal Cancer Screening: Annual FOBT 1999 Colorectal Cancer Screening: Colonoscopy 1999 Colorectal Cancer Screening: Sigmoidoscopy 1999 Influenza Vaccine (Season Ended) 2025 07/07/2022, 07/07/2022, 08/09/2021, Additional history exists Pneumococcal Vaccine: 65+ Years Completed 05/30/2020, 05/30/2020, 07/05/2019, Additional history exists Hepatitis B Vaccine Aged Out No longe r eligible based on patient's age to complete this topic Insurance Member Subscriber Plan / Payer (Ef fective 2012-Present) Name:Jaky Lackey Relation to Subscriber:Self Name:Ziyad Jaky Ezequiel Payer ID:[id number] (NAIC) Type:Not on file Address: [place] [id number] [place] [id number] MEDICARE Care Teams Bakery Team Member Relationship Specialty Start Date End Date Nani Fowler PA-C [address] [place] [address] PCP - General Internal Medicine 07/29/23
--- OUTSIDE RECORDS SUMMARY | 2024-12-17 22:07 | XMS_ITS | Clinical Summary ---
Author Organization [facility] Address [address] [place] [address] Care Team Providers Care Migration Specialist Name Role Phone Nani Fowler Primary Care Provider Allergies Active Allergy Reactions [...] 2020 Overview (07/31/2024): aubrey age 47, son [place] age 42 Chronic neck pain 11/27/2020 Overview [...] II disorder 03/28/2019 Overview (07/31/2024): Sees therapist Alonzo Kelly and psychiatrist Last [...] 10/05/2017 Overview (07/31/2024): Bone density January 2022, [facility] History of adult respiratory distress syndrome ( ARDS) 10/05/2017 Overview (07/31/2024): Fiberoptic Bronchoscopy for cultures : 4.14.2002 [facility] History of alcohol abuse 10/05/2017 Overview (07/31/2024): Quit 2008, AA Migraine headache 10/05/2017 S/p total knee replacement, bilateral 10/05/2017 Encounters Date Type Department Care Team Description 10/24/2024 Refill [facility] [address] [address] Shahbaz Mills MD Gastroesophageal reflux disease without esophagitis (Primary Dx) 10/23/2024 11:45 AM EST Office Visit [facility] [address] [address] Shahbaz Mills MD Dysphonia (Primary Dx); Vocal cord paresis; Gastroesophageal reflux disease without esophagitis; Memory loss 09/21/2024 Telephone [facility] [address] [place] [address] Shahbaz Mills MD from Last 3 Months Immunizations Name Administration [...] 06/11/2025 11:00 AM EDT Office Visit [facility] [place] [address] [facility], [place] [address] Shahbaz Mills MD [address] [address] Health Maintenance Due Date Last [...] age to complete this topic Care Teams Migration Specialist Relationship Specialty Start Date End Date Nani Fowler PA [address] [place] [address] PCP - General 07/26/24
--- OUTSIDE RECORDS SUMMARY | 2024-12-17 22:07 | XMS_ITS | Encounter Summary ---
Author Organization [facility] Address [address] [place] [address] Care Team Providers Care Value Stream Manager Name Role Phone Nani Fowler Primary Care Provider [phone] Encounter Details Date Type Department Care Team (Late st Contact Info) Description 08/15/2024 Scanned Document [facility] [address] [place] [address] Shahbaz Mills MD 15 Yumiko Mcgrath [address] [place] [phone] Social History Tobacco Use Types Packs/Day Years Used Date Smoking Tobacco: Never Assessed Sex and Gender Information Value Date Recorded Sex Assigned at Not on file Gender Identity Not on file Sexual Orientation Not on file documented as of this encounter Plan of Treatment Upcoming Encounters Date Type Department Care Team (Late st Contact Info) Description 06/11/2025 11:00 AM EDT Office Visit [facility] 15 [facility] [place] [phone] Shahbaz Mills MD [address] [place] [phone] documented as of this encounter Visit Diagnoses Not on filedocumented in this encounter Care Teams Value Stream Manager Relationship Specialty Start Date End Date Nani Fowler PA [address] [place] [address] PCP - General 07/26/24 documented as of this encounter
--- OUTSIDE RECORDS SUMMARY | 2024-12-17 22:07 | XMS_ITS | Clinical Summary ---
Author Organization [facility] Address [address] [place] [address] Care Team Providers Care Elevator Technician Name Role Phone Elmer Mcelroy MD Primary Care Provider [phone] Surgical History Surgery Date Site/Laterality Comments COLONOSCOPY [...] BMP Blood Test 08/26/2022 COVID-19 Vaccine ( season) 2024 Breast Cancer Screening 10/05/2024 10/05/19 23, 10/03/2021, 08/12/2020, Additional history exists Influenza Vaccine (Season Ended) 2025 RSV Immunization Adult Patients (1 - 1-dose 75+ series) 2025 Osteoporosis [...] Procedure Name Priority Date/Time Associated Diagnosis Comments KERN VALLEY SCREENING DIGITAL Routine 10/05/2022 3:29 PM EST Encounter for screening mammogram for malignant neoplasm of breast KERN VALLEY DEXA AXIAL SKELETON Routine 2018 11:50 AM EST Other specified disorders of bone density and structure, unspecified site from Last 3 Months or Most Recently Relevant to Health Maintenance Results * KERN VALLEY SCREENING DIGITAL (10/05/2022 3:29 PM EST) Anatomical Region Laterality Modality Mammography 10/05/2022 2:21 PM EST Narrative 10/05/2022 3:29 PM EST [facility] Diagnostic Imaging Department [address] [place] [address] Patient: ??KATIE BENITEZ ?/Age/Sex: 1950 72 - F Unit#: ??[id number] ? Location/Status: ??SPDIMAM/REG CLI ? Mnemonic/Ordering Site: ??DIGSC/SPMAM Ordering Physician: ??ELMER MCELROY MD [facility] Screening Digital - 10/05/22 143 EXAM: [facility] Screening Digital EXAM DATE AND TIME: 10/05/2022 2:39 PM HISTORY: ??Screening. Reduction mammoplasty in 2001. Mother had breast carcinoma at age 48. COMPARISON: ??1/21/22, 08/12/20, 11/02/18, 10/27/17 TECHNIQUE: CC and MLO views of both breasts were obtained using full field digital mammography. Bilateral digital breast tomosynthesis was performed in the MLO projection. Computer aided detection with Breaker 7.2-H and [employer] 3D 3.1 was employed. TISSUE DENSITY: a. [...] Routine screening mammogram BILATERAL in 1 year. [address]81, 52846 3342F, 7025F Dictating Physician: ??CHERRI SKINNER MD Electronically Signed by: ??CHERRI SKINNER MD Dic Date/Time: ??10/05/22 1528 Sign date/Time: ??10/05/22 1529 Procedure Note Cherri Skinner MD - 10/15/2023 [facility] Diagnostic Imaging Department [address] [place] [address] Patient: KATIE BENITEZ Ezequiel /Age/Sex: 1950 - 72 - F Unit#: [id number] Location/Status: SPDIMAM/REG CLI Mnemonic/Ordering Site: [facility] Ordering Physician: ELMER MCELROY MD [facility] Screening Digital - 10/05/22 - 1439 EXAM: [facility] Screening Digital EXAM DATE AND TIME: 10/05/2022 2:39 PM HISTORY: Screening. Reduction mammoplasty in 2001. Mother had breastcarcinoma at age 48. COMPARISON: 10/03/21, 08/12/20, 11/02/18, 10/27/17 TECHNIQUE: CC and MLO views of both breasts were obtained using fullfield digital mammography. Bilateral digital breast tomosynthesis was performedin the MLO projection. Computer aided detection with Breaker 7.2-H and[employer] 3D 3.1 was employed. TISSUE DENSITY: a. [...] Routine screening mammogram BILATERAL in 1 year. [address], 79468 3342F, 7025F Dictating Physician: CHERRI SKINNER MD Electronically Signed by: CHERRI SKINNER MD Dic Date/Time: 10/05/22 1528 Sign date/Time: 10/05/22 1529 us Elmer Mcelroy MD IMG BI PROCEDURES Final Re sult * KERN VALLEY DEXA AXIAL SKELETON (2018 11:50 AM EST) Anatomical Region Laterality Modality Mammography 2018 11:0 7 AM EST Narrative 2018 11:50 AM EST [facility] Diagnostic Imaging Department [address] [place], [place] [address] Patient: ??KATIE BENITEZ ?/Age/Sex: 1950 68 - F Unit#: ??[id number] ? Location/Status: ??SPDIMAM/REG CLI ? Mnemonic/Ordering Site: ??MAMDEXAAX/SPMAM Ordering Physician: ??ELMER MCELROY MD Ngoc Dexa Axial Skeleton - 09/19/18 1144 HISTORY: ??The patient is a 68-year-old postmenopausal [...] probability of hip fracture of 2.4%. Code 98104 Dictating Physician: ??MACIEL PIERRE MD Electronically Signed by: ??MACIEL PIERRE MD Dic Date/Time: ??09/19/18 1149 Sign date/Time: ??09/19/18 1150 Procedure Note Maciel Pierre MD - 09/02/2022 [facility] Diagnostic Imaging Department [address] [place] [address] Patient: KATIE BENITEZ Ezequiel /Age/Sex: 1950 - Unit#: [id number] Location/Status: [facility] Mnemonic/Ordering Site: [facility] Ordering Physician: ELMER MCELROY MD Ngoc Dexa Axial Skeleton - 09/19/18 114 HISTORY: The patient is a 68-year-old postmenopausal [...] density of the femurs bilaterally is 0.852 gm/fw7ibdfc is 85% of that of young normals [...] probability of hip fracture of 2.4%. Code 94427 Dictating Physician: MACIEL PIERRE MD Electronically Signed by: MACIEL PIERRE MD Dic Date/Time: 09/19/18 1149 Sign date/Time: 09/19/18 1150 Elmer Mcelroy MD IMG BI PROCEDURES Final Re sult from Last 3 Months or Most Recently Relevant to Health Maintenance Care Teams Elevator Technician Relationship Specialty Start Date End Date Elmer Mcelroy MD [address] [place] [address] PCP - General Pediatrics 09/22/17
== END ==
LOC: HO.SL 20:30
PROVIDERS: PCP Internal Medicine; Visit Provider Hospitalist
DX: G47.33 Obstructive sleep apnea (adult) (pediatric) (principal)
CPT/HCPCS: 95811

== ENCOUNTER → 2024-12-17 20:30 | Outpatient (BNV) | payer MEDICARE, SELFPAY | PROVIDERS: PCP Internal Medicine; Visit Provider Internal Medicine | DX: G47.33 Obstructive sleep apnea (adult) (pediatric) (principal); R06.83 Snoring | CPT/HCPCS: 95811 ==

== ENCOUNTER 2025-05-08 13:16 | Outpatient (AMB) | payer MEDICARE, SELFPAY ==
--- NOTE | 2025-05-08 13:19 | A.OFFVIS_ITS ---
Vital Signs 05/08/25 13:20 Height 5 ft 2 in Weight 142 lb 3.17 oz BMI 26.0 BP 100/60 Blood Pressure Location Lt brachial Position Sitting Pulse 80 Pulse Source Pulse Oximeter Pulse Oximetry (%) 97 Oxygen Delivery Method Room Air Intake Visit Reasons: CHEYENNE (pt r/s fr 03/02) Chief Lending Officer Required: No Allergies No Known Allergies Allergy (Verified 05/08/25 13:24) HPI Comments Details: The patient is a 74-year-old woman with a known history of obstructive sleep apnea on CPAP in addition to insomnia. she still struggles with her sleep. However, she finds that the bill summer all in the as needed lorazepam have become very effective in helping her sleep. She has tried numerous sleep aids without any significant improvement. In the meantime her CPAP machine has not been working properly. It appears the button some no longer working and she is having difficulties with her CPAP therapy due to the mouth functioning machine. Therefore, will request a new CPAP for her. This will provide better adherence and overall better therapy for the patient. The CPAP therapy has been very effective for her and she does use it for more than 4 hours a night in even when she naps. Also to note back in October she was very sick she thought she had COVID-19 infection. We had treated her that time with azithromycin and also Plaquenil. The patient made a full recovery. 07/06/2022 the patient is here for a pulmonary follow-up visit. Overall the patient has been doing better overall. She has seen a psychiatrist now in therefore had medication changes. He was able to stop the trazodone and also the Belsomra for sleep. She is getting better sleep. She is also using her CPAP. The CPAP therapy continues to be affecting beneficial. She does use it for more than 4 hours a night. However, her current machine is very old and no longer working. It is leaking water and not providing good seal. Therefore he has been able to use any water for humidification. He was able to be okay during the spring and summer. But now with the fall and winter it is getting very dry as far as the relative humidity. Therefore is hard for her to use it. We did call her [employer] company to see what the status is at her replace in the feeling that request during the last visit. Hopefully we get her a new machine in the coming weeks. Her current DME company is [employer]. 01/06/2023 the patient is here for a pulmonary follow-up visit. She is status post surgery and ultimately was intubated. Post surgery she was extubated and went into laryngeal spasms and was not ventilating. Therefore the patient was placed on succinylcholine and an LMA was in place. She was then able to ventilate. She was monitored for 24 hours and then she was discharged. The patient after that has still feels short of breath. Heart size hard time taking a full breath. On examination that she does not have any stridor. She does have any wheezing. We did have her undergo a spirometry with it did demonstrate limitation of the inspiratory flow in addition to this it demonstrated that her FEF 25% was decreased down to 60% suggesting small airways disease. Therefore we get did give her the albuterol treatment I did help her symptoms. The I did provide with a Symbicort inhaler in order to provide her with some inhaled steroid effect in addition to bronchodilation effect. She can do that daily. When she is better she can then use it as needed. She will have an x-ray done whenever able and will follow-up in the next few months. She is using her CPAP. CPAP therapy continues to be affecting beneficial. She does use it every night for more than 4 hours a night. We did download the machine and her AHI was slightly elevated at 5.2. Therefore I adjusted her pressure is a little bit for increasing her minimum pressure from 6-8. Maximum pressure would left lung at 16 cm. 05/24/2023 the patient is here for pulmonary follow-up visit. Overall the patient has been feeling well. She continues uses CPAP every night. CPAP therapy has been affecting beneficial. She did bring machine although not the cord. I did have access online. Seems like her AHI is higher at 10 episodes per hour. The patient does use a nasal mask. I did provide with an F 30 I mask which I believe will work better for her. With a fullface mask the patient will probably be able to tolerate the higher pressures. We did increase her Pap from 8-16 to 10-18. I am hopeful that she response to this therapy. In meantime she still struggles with her sleep. The patient has been using lorazepam as needed she sats adverse effects to the hypnotics in the past. She did not really respond well to the gabapentin. She will try melatonin and also Behavioral Sleep therapy. The patient also has the Symbicort inhaler. Has not really used it. Does not feel like she sees any benefit in using it. At this point the patient can use use it as needed. Will follow-up in 6 months otherwise if any new issues arise she can always call for an earlier assessment. 11/23/2023 the patient is here for a pulmonary follow-up visit. Overall the patient is doing well. She is that back in [place]. She has been using her CPAP every night. The CPAP therapy continues to be very affecting beneficial. She does use it every night. Although she has been having some issues with her mask fitting in addition to her supplies. She does use [employer] the patient does have an F30 I medium mask that is been working well for her although, it is crying now broken and I did provide her with a new cushion for which seems to be much better. In addition to that her AHI significantly elevated. Averages around 11.3 and last night was around 20. And appears to be that is mainly obstructive in nature. The patient needs to have a repeat sleep study this time. She actually needs a titration study but may need a sleep study in order to get a active with the [employer] company. We did request a home sleep study during the fall. However, the patient had a lot of difficulties with it. And she may have some issues with memory that makes it very hard for her to complete the task. Therefore, an in-lab sleep study will be very effective for her we can diagnosed with sleep apnea and then titrate her with a split study. Therefore put it order right now to do that. The patient does have significant needs for the CPAP and right now is not working for her as well. From a respiratory status she is doing fine. She did get a rescue inhaler during the last visit. She has not had to use it recently. Therefore, follow-up with the patient after her study. 04/03/2024 the patient is here for a pulmonary follow-up visit. Overall she is doing okay. She wishes that the tape and she forgot her meds and she had a difficult time that she did have her psychiatric blood pressure medications. Now she is back to her baseline. She is using her CPAP and she did use the new mask that seems to be feeling better. We were able to download her machine seems that the AHI is improving as well. Will go ahead and adjust her machine further increasing pressures to some degree. I am hopeful that she can not tolerate the higher pressure and we can bring the AHI down. Will go ahead and looked at the data in a couple weeks after she calls the office. Once we will to assess that we can figure out if she needs to continue on the current settings or does settings are not enough will at that point probably need a titration studies and she will be maxed out on her CPAP and will benefit from a BiPAP. Therefore will reassess in a couple weeks when she calls in to see her progress on CPAP. From a respiratory status she is doing okay. She has all her medications available. Will follow-up in 6-8 months or sooner if she continues to have difficulties with her CPAP. 11/21/2024 the patient is here for a pulmonary follow-up visit. The patient has been using the CPAP every night. CPAP therapy has been affecting beneficial. She does use for more than 4 hours a night. She had been having issues with her memory now. Her AHI continues to be very elevated at 13. We did request a titration study previously but it was not approved by insurance company for unclear reason. The patient continues to have a significantly high [place] score and she is symptomatic therefore she needs to have a titration study in order to see if we need to either increase the pressures or change her PAP therapy altogether. In the meantime I did increase the pressure further from 8- 10 cm pressure high pressure of 20 cm. The patient also will try new mask will try the F 40 mask from the [facility]. From a respiratory status the patient is doing okay. Denies any wheezing coughing or chest tightness. 05/08/2025 the patient is here for pulmonary follow-up visit. Overall the patient is doing well. She is still using her old CPAP machine. It is no longer working effectively. The AHI continues to be elevated and the APAP is not able to reach the maximum pressure. Therefore will go ahead and request a replacement APAP for her. She does have a fullface mask and she finds it a lot more comfortable. She is going to used to it. Her AHI continues to be elevated at 11 episodes per hour. Therefore I will increase her pressure more. If she does have a hard time tolerating the APAP then we can consider getting her a BiPAP to allow her to tolerate the higher pressures. In the meantime the patient will continue to use her respiratory therapy as prescribed. No recent exacerbations. The patient is doing well will follow-up in a year's time. [facility] Medical History (Updated 11/21/24 @ 22:31 by Abran Pastrana MD) CHEYENNE (obstructive sleep apnea) Laryngospasm Reactive airway disease Mass of brain Insomnia CHEYENNE on CPAP Bronchitis Family History (Updated 07/01/20 @ 20:14 by Abran Pastrana MD) Other CHEYENNE (obstructive sleep apnea) Social History Patient Tobacco Use Status: Former Tobacco user Tobacco use type: Cigarette Years Smoked: 5 years Review of Systems Const Reports difficulty sleeping and Denies night sweats ENT Denies change in voice, Denies lip swelling, Denies mouth pain, Reports nasal congestion, Reports nasal discharge and Denies tongue swelling Card Denies chest pain and Denies dyspnea Resp Denies cough and Denies dyspnea GI Denies abdominal pain Musc Denies no additional complaints Neuro Denies Neuro-related abnormal movements Psych Reports anxiety Bebeto/Lymph Denies easy bleeding and Denies lymphadenopathy Aller/Immun Denies lip swelling and Denies tongue swelling Physical Exam Vital Signs: Last Vital Signs Pulse 80 05/08/25 13:20 BP 100/60 05/08/25 13:20 Pulse Ox 97 05/08/25 13:20 Oxygen Delivery Method Room Air 05/08/25 13:20 BMI result Body Mass Index 26.0 Const General: alert Neck Neck: Yes normal visual inspection, Yes full ROM and Yes no lymphadenopathy Chest Chest palpation & inspection: normal inspection of the chest Resp Auscultation: clear to auscultation bilaterally and no wheezes Cardio Rate: regular rate Rhythm: regular rhythm Heart sounds: S1 normal heart sound present and S2 normal heart sound present GI Palpation (GI): Soft to palpation and nontender Auscultation: normal bowel sounds Skin General skin exam: rashes and/or lesions noted Assessment & Plan Assessment & Plan (1) Insomnia: Code(s): G47.00 - Insomnia, unspecified Category: Medical Qualifiers: Insomnia type: primary Qualified Code(s): F51.01 - Primary insomnia (2) CHEYENNE on CPAP: Comment: with elevated AHI 13 on APAP Code(s): G47.33 - Obstructive sleep apnea (adult) (pediatric); Z99.89 - Dependence on other enabling machines and devices Category: Medical (3) Reactive airway disease: Comment: secondary to anesthesia Code(s): J45.909 - Unspecified asthma, uncomplicated Category: Medical Qualifiers: Asthma complication type: uncomplicated Asthma persistence: intermittent Asthma severity: mild Qualified Code(s): J45.20 - Mild intermittent asthma, uncomplicated (4) CHEYENNE (obstructive sleep apnea): Code(s): G47.33 - Obstructive sleep apnea (adult) (pediatric) Category: Medical Plan Replacement APAP therapy -, FM. COnsider BIPAP if se has a difficult time tolerating the presssures continue Gabapentin CXR 02/2023-no acute disease continue Symbicort as needed Follow-up in 8-12 months Coding Level of Care Code Est Pt Level 4 (44562) Diagnoses Primary insomnia F51.01 Insomnia type: primary CHEYENNE on CPAP G47.33; Z99.89 Mild intermittent reactive airway disease without complication J45.20 Asthma complication type: uncomplicated Asthma persistence: intermittent Asthma severity: mild CHEYENNE (obstructive sleep apnea) G47.33 Time Spent (min) 17
[2025-05-08 13:20] VITALS: BP 100/60; PULSE 80; O2SAT 97; BMI 26.0
--- OUTSIDE RECORDS SUMMARY | 2025-05-08 14:06 | XMS_ITS ---
Author Name [facility] Organization Unknown History of Medication Use Medication Directions Dispensed Refills Start Date End Date Stat us famotidine (PEPCID) 40 MG tablet TAKE ONE TABLET BY MOUTH EVERY DAY 10/24/2024 active atorvastatin (LIPITOR) 20 MG tablet Take 20 mg by mouth daily. active buPROPion (WELLBUTRIN XL) 300 MG 24 hr tablet Take 300 mg by mouth every morning. Swallow whole; do not crush, chew, or divide. active fluticasone (FloNASE) 50 mcg/spray nasal spray 1 spray into each nostril. active Allergies Allergen Reaction Severity Comment Documented Date Source Statu s LISINOPRIL OTHER (SEE COMMENTS) 09/21/2018 [facility] active Problems Problem Status Onset Date Problem Type Date of Resolution Source Bipolar II disorder active 2019-03-28 ProblemAct [facility] Chronic neck pain active 2020-11-27 ProblemAct [facility] Chronic pain of both knees active 2021-12-10 ProblemAct [facility] Do not resuscitate active 2021-05-30 ProblemAct [facility] History of adult respiratory distress syndrome (ARDS) active 2017-10-05 ProblemAct [facility] CHEYENNE (obstructive sleep apnea) active 2024-07-26 ProblemAct [facility] Exogenous hypertriglyceridemia active 2023-08-18 ProblemAct [facility] Insomnia active 2024-07-26 ProblemAct [facility] Cobblestone retinal degeneration, bilateral active 2022-05-19 ProblemAct [facility] Gastroesophageal reflux disease without esophagitis active EncounterDiagnosisAct [facility] CKD (chronic kidney disease) stage 3, GFR 30-59 ml/min active 2024-07-26 ProblemAct [facility] Impaired fasting glucose active 2020-06-05 ProblemAct [facility] Endophthalmitis, 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 ProblemAct [facility] Age-related osteoporosis without current pathological fracture active 2017-10-05 ProblemAct [facility] Chronic constipation active 2022-10-08 ProblemAct [facility] Family history of coronary artery disease active 2021-05-30 ProblemAct [facility] Anxiety active 2024-07-26 ProblemAct [facility] HTN (hypertension) active 2024-07-26 ProblemAct [facility] Hyperlipidemia active 2024-07-[address] Allergic rhinitis active 2024-07-26 ProblemAct [facility] 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 2022-05-19 ProblemAct [facility] Restless leg syndrome active 2018-09-26 ProblemAct [facility] Migraine headache active 2017-10-05 ProblemAct [facility] History of alcohol abuse active 2017-10-05 ProblemAct [facility] Epiretinal membrane (ERM) of both eyes active 2022-05-19 ProblemAct [facility] Vitamin B12 deficiency active 2019-08-30 ProblemAct [facility] Carpal tunnel syndrome of right wrist active 2019-08-16 ProblemAct [facility] Muscular deconditioning active 2022-10-08 ProblemAct [facility] 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 ProblemAct [facility] Meningioma active 2021-07-07 ProblemAct [facility] S/p total knee replacement, bilateral active 2017-10-05 ProblemAct [facility] Immunizations Vaccine Date Source Lot Number Status Td, Unspecified 08/23/2023 [facility] [id number] completed Influenza Virus Trivalent Sp lit Vaccine (MDV) IM 08/17/2023 [facility] [id number] completed Influenza High-Dose Quadriva lent,(FLUZONE HIGH-DOSE), Perservative Free IM 0.7 mL 65 years and older 07/07/2022 [facility] [id number] completed Influenza Virus Trivalent Sp lit Vaccine (MDV) IM 07/07/2022 [facility] [id number] completed Influenza, Unspecified 07/07/2022 [facility] [id number] co mpleted Influenza High-Dose Quadriva lent,(FLUZONE HIGH-DOSE), Perservative Free IM 0.7 mL 65 years and older 08/09/2021 [facility] [id number] completed Influenza Virus Trivalent Sp lit Vaccine (MDV) IM 08/09/2021 [facility] [id number] completed Influenza, Unspecified 08/09/2021 [facility] [id number] co mpleted Influenza, Unspecified 07/02/2020 [facility] [id number] co mpleted Pneumococcal Polysaccharide 23-Valent 05/30/2020 [facility] UNK completed Influenza Virus Trivalent Sp lit Vaccine (MDV) IM 07/05/2019 [facility] [id number] completed Influenza, Quadrivalent (FLU ARIX, AFLURIA, FLULAVAL, FLUZONE) Preservative Free IM 07/05/2019 [facility] [id number] completed Pneumococcal Conjugate 13-Valent 07/05/2019 [facility] UNK completed Influenza, Unspecified 05/16/2019 [facility] Zoster Vaccine Recombinant (Shingrix) 05/16/2019 [facility] UNK completed Zoster Vaccine Recombinant (Shingrix) 03/01/2019 [facility] [id number] completed Influenza High-Dose Trivalen t,(FLUZONE HIGH-DOSE), Perservative Free IM 0.5 mL 65 years and older 05/31/2018 [facility] completed Influenza Virus Trivalent Sp lit Vaccine (MDV) IM 05/31/2018 [facility] UNK completed Influenza, Unspecified 05/31/2018 [facility] UNK co mpleted Influenza High-Dose Trivalen t,(FLUZONE HIGH-DOSE), Perservative Free IM 0.5 mL 65 years and older 06/11/2016 [facility] [id number] completed Influenza Virus Trivalent Sp lit Vaccine (MDV) IM 06/11/2016 [facility] [id number] completed Influenza, Unspecified 06/11/2016 [facility] [id number] co mpleted Pneumococcal Conjugate 13-Valent 06/11/2016 [facility] UNK completed Influenza Virus Trivalent Sp lit Vaccine (MDV) IM 09/11/2015 [facility] [id number] completed Influenza, Quadrivalent (FLU ARIX, AFLURIA, FLULAVAL, FLUZONE) Preservative Free IM 09/11/2015 [facility] [id number] completed Zoster Vaccine Live/Attenuated (Zostavax) 06/10/2012 [facility] UNK completed Tdap 05/10/2012 [facility] UN completed Encounters Encounter Type Encounter Reason Primary Diagnosis Location Date Ambulatory Sore Throat Sore Throat [facility] 10/23/2024 Ambulatory Swollen Glands Swollen Glands [facility] 09/01/2024 Ambulatory [facility] 07/31/2024 Care Team Organization Name Specialty Phone Email Start Date End Da te [facility] 08/02/2024 12/03/2024 [facility] 07/26/2024 [facility] 07/26/2024
--- OUTSIDE RECORDS SUMMARY | 2025-05-08 14:06 | XMS_ITS | Clinical Summary ---
Author Organization [facility] Address [address] [employer] [address] [address] Phone Care Team Providers Care Raking Machine Operator Name Role Phone Abran Pastrana MD Unavailable Skyler Hodge MD Unavailable Harry Barillas MD Unavailable [phone] Beatrice Parker DO Unavailable Nani Fowler Primary Care Provider [phone] Allergies Active Allergy Reactions Criticality Noted Date Comments Lisinopril Cough 09/21/2018 Medications fluticasone propionate (FLONASE) 50 mcg/actuation nasal spray 1 spray by Nasal route daily. Active gabapentin (NEURONTIN) 300 MG capsuleIndicatio ns:Restless leg syndrome TAKE ONE CAPSULE BY MOUTH ONCE DAILY AT BEDTIME NEEDED 90 capsule 1 1 Active Additional Information Patient taking differently: 300 mg, Takes 400 mg, Reported on 07/07/2022 escitalopram oxalate (LEXAPRO) 10 MG tablet Take 20 mg by mouth daily. 1 Active LORazepam (ATIVAN) 0.5 MG tabletIndication s:Anxiety state TAKE 1 TABLET BY MOUTH EVERY 8 HOURS NEEDED FOR AXIETY 30 tablet 2 Active Additional Information Patient taking differently: Nightly, (No instructions reported), Reported on 07/07/2022 buPROPion (WELLBUTRIN SR) 100 MG SR 12 hr tablet Take 100 mg by mouth every morning. 2 Active atorvastatin (LIPITOR) 20 MG tablet TAKE ONE TABLET BY MOUTH NIGHTLY AT BEDTIME 90 tablet 1 2 Active valsartan (DIOVAN) 40 MG tabletIndication s:Benign essential hypertension TAKE ONE TABLET BY MOUTH ONCE DAILY 90 tablet 1 2 Active buPROPion (WELLBUTRIN SR) 200 MG SR 12 hr tablet 3 Active lamoTRIgine (LAMICTAL) 25 MG IMMEDIATE release tabletIndication s:Bipolar 2 disorder TAKE 2 TABLETS BY MOUTH IN THE MORNING AND 2 TABLETS BY MOUTH AT NIGHT DAILY 360 tablet 3 Active budesonide-formo terol (SYMBICORT) 160-4.5 mcg/actuation inhaler 3 Active cetirizine (ZYRTEC) 10 MG tablet Take by mouth. 3 Active oxyBUTYnin (DITROPAN) 5 MG tablet Take 5 mg by mouth. 3 Active Active Problems Problem Noted Date Diagnosed Date Muscular deconditioning 10/08/2022 Assessment & Plan (10/08/2022 10:39 AM EST): Reviewed exercises to improve core and lower extremity strength. Encouraged her to do more walking. Exercise handout given. If this is not helpful, can be referred to physical therapy. Follow-up as planned with new PCP in [place] in November. Chronic kidney disease, stage 3a 10/08/2022 Assessment & Plan (10/08/2022 10:38 AM EST): Clinically she is doing well. She should avoid nonsteroidals. Chronic constipation 10/08/2022 Assessment & Plan (10/08/2022 10:38 AM EST): Try taking prunes daily. If this is not helpful, adding a daily fiber supplement or MiraLAX could be a good choice. 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 Continue home exercise program and will start physical therapy this summer Meningioma 07/07/2021 Overview (12/10/2021): Resected August 2021 Assessment & Plan (07/07/2022 12:44 PM EDT): Clinically she doing well, follow-up as planned with neurosurgery Assessment & Plan (12/10/2021 1:37 PM EDT): She is doing very well. Follow-up as planned with neurosurgery next year Family history of coronary artery disease 2020 Overview (05/30/2021): fathe age 47, son [place] age 42 Do not resuscitate 05/30/2021 Assessment & Plan (05/30/2021 12:33 PM EDT): We had a brief discussion regarding advanced care planning. She does not want to be intubated or resuscitated. We do need to have a more nuanced conversation. We will discuss this in detail at her next appointment. Chronic neck pain 11/27/2020 Overview (07/07/2022): Much better with PT Assessment & Plan (07/07/2022 12:45 PM EDT): Pain is just about resolved, continue home exercises. Assessment & Plan (11/27/2020 9:52 AM EDT): Likely muscular deconditioning. She is referred to physical therapy. Impaired fasting glucose 06/05/2020 Assessment & Plan (05/30/2021 12:31 PM EDT): Dietary counseling was given Vitamin B12 deficiency 08/30/2019 Carpal tunnel syndrome of right wrist 08/16/2019 Assessment & Plan (08/16/2019 1:08 PM EST): Doing much better with nocturnal splinting. Continue the same. She will follow- up as scheduled to have her nerve conduction study. If it does confirm that she has carpal tunnel syndrome as long as her symptoms are well controlled the splint is all that I would recommend. She can follow-up if she wishes with her orthopedist. Bipolar 2 disorder 03/28/2019 Overview (07/07/2022): Sees therapist Alonzo Kelly and psychiatrist Assessment & Plan (10/08/2022 10:38 AM EST): Doing well with current medication. Continue the same and follow-up as planned with psychiatry Assessment & Plan (07/07/2022 12:44 PM EDT): Doing very well with current medication, continue the same. Assessment & Plan (12/10/2021 1:38 PM EDT): She doing much better with her current medication, continue the same and follow- up as scheduled with psychiatry Assessment & Plan (05/30/2021 12:32 PM EDT): She is having more trouble with depression, which is likely a reaction to her son's recent severe illness. She also seems somewhat anxious today, but she feels like this is manageable. I encouraged her to continue working with her therapist. Her therapist is working with her to schedule appointment to see psychiatry. Assessment & Plan (05/02/2021 2:13 PM EDT): Symptoms gotten worse due to the acute distress of her son's heart attack. She is gradually improving now that he has improved. She still having significant amount of trouble with depression and anxiety. I would like her to increase the dose of lamotrigine to 75 mg twice daily. She can continue using lorazepam as needed but to try to keep it use to a minimum. Assessment & Plan (11/27/2020 9:52 AM EDT): General she is doing well but she still having some anxiety. I encouraged her to take more breaks from her family and spend more time relaxing especially if she is able to go to her [employer] home more often. Continue current medication. Assessment & Plan (07/24/2020 11:11 AM EST): Well controlled, cont current med. Assessment & Plan (05/30/2020 11:28 AM EDT): Symptoms have gradually worsened. I would like her to increase the dose of lamotrigine. If this is not helpful I refer her back to psychiatry. Assessment & Plan (11/09/2019 10:04 AM EST): She is doing very well with lamotrigine. Continue same. I will see her back in 6 months. Assessment & Plan (08/30/2019 12:55 PM EST): Well-controlled with current medication, continue the same. Assessment & Plan (08/16/2019 11:22 AM EST): Doing much better with her current medication. Continue the same. Encouraged her to continue limiting her alcohol use. Assessment & Plan (07/04/2019 10:17 AM EDT): No significant change, possibly because she is taking lamotrigine Morrison at bedtime. Asked her to divide and take it twice daily. If she tolerates this I want her to increase the dose to 50 mg twice a day in a week. I will see her back in the office about 6 weeks. She will follow-up as scheduled with her counselor. Assessment & Plan (03/28/2019 10:11 AM EDT): The rash she developed seems unlikely to be related to her lamotrigine since it is very localized. More like it was a contact dermatitis. I asked her to restart lamotrigine once a day and if she tolerates this for 1 to 2 weeks she can increase it back to twice daily. If she develops another rash she will let me know and I will speak with Dr. Apple about other mood stabilizer options. Restless leg syndrome 09/26/2018 Overview (08/21/2021): Better with gabapentin Assessment & Plan (12/10/2021 1:38 PM EDT): Well-controlled, continue current medication Assessment & Plan (08/21/2021 3:00 PM EST): Clinically she is doing well. Continue current medication. Assessment & Plan (05/30/2020 11:27 AM EDT): Well-controlled with gabapentin. Continue same. Assessment & Plan (09/26/2018 9:59 PM EST): Worse, restart gabapentin Essential hypertension 09/21/2018 Assessment & Plan (10/08/2022 10:37 AM EST): Well-controlled, continue current medication Assessment & Plan (07/07/2022 12:43 PM EDT): Well-controlled, continue current medication Assessment & Plan (12/10/2021 1:37 PM EDT): Well-controlled, continue current medication Assessment & Plan (08/21/2021 2:55 PM EST): Well-controlled, continue current medication. On the morning of surgery she can take her medication with a small amount of water. Assessment & Plan (05/30/2021 12:31 PM EDT): Blood pressures well controlled. Periodic sense of bloating may be due to salt intake. Continue low-sodium diet. I would not recommend changing to a diuretic because of history of hypokalemia. Assessment & Plan (11/27/2020 9:51 AM EDT): Well-controlled, continue current medication. Assessment & Plan (07/24/2020 11:11 AM EST): Well controlled, tolerating med well. Assessment & Plan (05/30/2020 11:25 AM EDT): Hypertension is well controlled, continue current medication. Assessment & Plan (11/09/2019 10:03 AM EST): Blood pressures well controlled, continue current medication. Assessment & Plan (08/30/2019 12:54 PM EST): Blood pressures well controlled, continue current medication. There is no contraindication for her to proceed with surgery. Assessment & Plan (07/04/2019 10:16 AM EDT): Well-controlled, continue current medication. Assessment & Plan (03/28/2019 10:13 AM EDT): Hypertension well-controlled, continue current medication. Assessment & Plan (01/04/2019 1:38 PM EDT): Blood pressure still mildly elevated but better. I think some of this has to do with anxiety and her continued alcohol use. Continue same medication and follow. Assessment & Plan (09/26/2018 9:53 PM EST): Better with med change, cont same Hypercholesteremia 09/21/2018 Assessment & Plan (07/07/2022 12:44 PM EDT): Well-controlled, continue current medication Assessment & Plan (12/10/2021 1:37 PM EDT): Well-controlled, continue current medication Assessment & Plan (05/30/2020 11:25 AM EDT): Tolerated medication well, LDL goal less than 100. Check labs today. Triglycerides may be [place] because she did eat about 5 hours ago. Assessment & Plan (11/09/2019 10:03 AM EST): Lipids are well controlled. I will recheck them at her next appointment with me in 6 months. Assessment & Plan (01/04/2019 1:39 PM EDT): LDL goal is less than 100. Check a lipid panel and adjust her medication if needed. Obstructive sleep apnea 09/21/2018 Overview (05/30/2020): Managed by pulmonary Assessment & Plan (07/07/2022 12:44 PM EDT): Doing well with CPAP, continue the same Assessment & Plan (12/10/2021 1:37 PM EDT): Doing well with CPAP, continue same and follow-up as planned with pulmonary Assessment & Plan (08/21/2021 2:55 PM EST): CPAP has been effective in reducing daytime somnolence, but she still having trouble sleeping which I think is mostly due to anxiety. Continue using CPAP. Assessment & Plan (11/27/2020 9:51 AM EDT): She is doing well. I agree changing from Belsorma to trazodone would be prudent Assessment & Plan (05/30/2020 11:25 AM EDT): Daytime somnolence is doing well but she still having trouble falling asleep. She is going to stop Lerner Amaury and discuss this with pulmonary. She seemed just taking lorazepam at bedtime which again I think she should review with pulmonary first. Assessment & Plan (11/09/2019 10:03 AM EST): Doing well. Continue with CPAP. Follow-up as scheduled with pulmonary. Assessment & Plan (08/30/2019 12:54 PM EST): Clinically she is doing well. She should be observed in the perioperative period closely for any signs of respiratory insufficiency. Assessment & Plan (01/04/2019 1:38 PM EDT): Doing reasonably well with CPAP. Her anxiety is likely driving part of her trouble sleeping. 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 Assessment & Plan (05/30/2020 11:28 AM EDT): She continues to do very well drinking on a very limited basis. I encouraged her to keep her drinking to a minimum as she has. Assessment & Plan (11/09/2019 10:04 AM EST): She is doing well, and I congratulated her on her's continued sobriety. Assessment & Plan (08/16/2019 11:22 AM EST): Doing much better there. I encouraged her to try to strive for abstinence. Assessment & Plan (01/04/2019 1:38 PM EDT): Cessation counseling given. She may be more able to succeed with this once her anxiety is in better control. Resolved Problems Problem Noted Date Diagnosed Date Resolved Date Moderate episode of recurren t major depressive disorder 08/21/2021 07/07/2022 Assessment & Plan (08/21/2021 2:56 PM EST): It is not clear to me if the patient has depression versus bipolar 2. I am glad to see the patient is seeing a new psychiatrist and I am hopeful that adjustment in her medication will help improve her symptoms. I discussed with Jaky the possibility of Lexapro precipitating manic symptoms. If these occur she will let Dr. Barillas know right away. Follow-up as scheduled with Dr. Barillas. Occipital mass 06/16/2021 12/10/2021 Overview (08/17/2021): 4.4 cm mass in the occipital lobe, found incidentally after a fall, June 2021. MRI consistent with meningioma, no surrounding edema and mild mass-effect. Consulted August 2021 Dr. Hodge, planning surgical resection. Assessment & Plan (08/21/2021 2:59 PM EST): EKG today was normal. I asked her to stop drinking any alcohol for the next week to reduce the risk that she has any withdrawal postoperatively. Obstructive sleep apnea preserved risk for hypoventilation in the perioperative. She should be monitored for this closely. If labs show no significant abnormality, there is no contraindication to proceed with surgery. Dysuria 03/28/2019 11/09/2019 Vaginitis and vulvovaginitis 03/28/2019 05/30/2020 Assessment & Plan (03/28/2019 10:10 AM EDT): Probably either nonspecific vaginitis or Samia. If hydrocortisone resolves that she does not need any other treatment. If it continues to flare intermittently I suggested she use a topical antifungal. I think urinary tract infection is unlikely. Even if her urine is abnormal I would not treat her with an antibiotic unless her symptoms worsen. 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 She is interested in trying another medication even though she has had little success in the past, it has been many years since she is tried anything new. I will refer her to Dr. Apple. She also may be interested in seeing Zakiya for cognitive behavioral therapy to help her with relaxation. I asked her to also discuss this with her current therapist. Alcohol abuse, continuous 09/21/2018 Assessment & Plan (07/04/2019 10:17 AM EDT): I strongly encouraged her to stop drinking any alcohol and remind her the drinking alcohol prior to going to bed may worsen her insomnia. I asked her to work with her therapist. Assessment & Plan (09/26/2018 9:59 PM EST): Need to address at next OV Depression, major 09/21/2018 03/28/2019 Assessment & Plan (09/26/2018 9:57 PM EST): Pt will d/w therapist, need to address ETOH use. Likely should see psychiatry for med change INB with therapy Primary osteoarthritis of both knees 09/21/2018 12/10/2021 Paresthesia of skin 09/21/2018 08/16/20 19 Immunizations Immunization Administration Dates Next Due COVID-19 (Pre-07/05) Moderna Vaccine, mRNA, PF 0 11/01/2020,10/04/2020 Influenza High-Dose Quadrivalent Preservative Fr ee IM 07/07/2022,08/09/2021 Influenza High-Dose Trivalent Preservative Free IM 05/31/2018,06/11/2016 Influenza Quadrivalent Preservative Free IM 06/14,09/11/2015 Influenza, Unspecified Formulation 07/02/2020, Pneumococcal conjugate PCV13 07/05/2019,06/11/20 16 Pneumococcal polysaccharide PPSV23 05/30/2020 Tdap 05/10/2012 Zoster live 06/10/2012 Zoster recombinant 05/16/2019,03/01/2019 Family History Medical History Relation Comments No Known Problems Daughter Heart disease Father Colon cancer Maternal Aunt Breast cancer Mother Liver cancer Paternal Aunt No Known Problems Sister Coronary artery disease Son Relation Status Comments Daughter Alive Father (Age 47) Maternal Aunt Mother (Age 58) Paternal Aunt Sister Alive Son Alive Social History Tobacco Use Types Packs/Day Years Used Date Smoking Tobacco: Former Cigarettes 1 10 1 974 - 1983 Smokeless Tobacco: Never Tobacco Cessation:Counseling Given: Not Answered Alcohol Use Standard Drinks/Week Comments Yes 0 (1 standard drink = 0.6 oz pur e alcohol) Education Answer Date Recorded Are you interested in more education? Not on ghada e 01/08/2023 Are you concerned about learning? Not on file 01/08/2023 No 01/08/2023 No 01/08/2023 Digital Access Answer Date Recorded No 02/08/2023 No 02/08/2023 Reliable internet access at home? Not on file 02/08/2023 Device with a working camera? Not on file Comments Unknown Sex and Gender Information Value Date Recorded Sex Assigned at Not on file Legal Sex Female 12:47 PM EDT Gender Identity Not on file Sexual Orientation Not on file Last Filed Vital Signs Vital Sign Reading Time Taken Comments Blood Pressure 150/82 10/08/2022 10:12 AM EST Pulse 68 10/08/2022 10:12 AM EST Temperature 36.3 C (97.3 F) 10/08/2022 10:12 AM EST Respiratory Rate 16 07/28/2021 1:56 PM EST Oxygen Saturation 97% 10/08/2022 10:12 AM EST Inhaled Oxygen Concentration - - Weight 71.4 kg (157 lb 6.4 oz) 10/08/2022 10:12 AM EST Height 157.5 cm (5' 2.01 ) 07/07/2022 9:54 AM ED T Body Mass Index 28.78 07/07/2022 9:54 AM EDT Plan of Treatment Health Maintenance Due Date Last Done Comments SMOKING Hx and SMOKELESS TOBACCO SCREENING 1963 COLOGUARD 1995 FIT TEST 1995 FOBT 1995 SIGMOIDOSCOPY 1995 VIRTUAL COLONOSCOPY 1995 OSTEOPOROSIS SCREENING INITIAL (ONE-TIME) 2015 Adult Td,Tdap Booster 05/10/2022 05/10/2012 DEPRESSION SCREENING 12/10/2022 12/10/2021 BLOOD PRESSURE 04/07/2023 10/08/2022 CREATININE LEVEL 08/12/2023 08/12/2022, 05/2021, 05/30/2021, Additional history exists POTASSIUM LEVEL 08/12/2023 08/12/2022, 12/05/2021, 05/30/2021, Additional history exists COVID-19 VACCINE ( season) 2024 07/01/2022, 12/10/2021, 07/08/2021, Additional history exists MAMMOGRAM 10/05/2024 10/05/2022, 07/16, 11/02/2018 RSV VACCINE (1 - 1-dose 75+ series) 2025 LIPID PANEL 08/12/2027 08/12/2022, 07/16, 05/30/2021, Additional history exists COLONOSCOPY 10/03/2031 10/03/2021, 04/23/2015 COLORECTAL CANCER SCREENING 10/03/2031 HEPATITIS C SCREENING Completed 11/11/2016 ZOSTER VACCINES Completed 05/16/2019, 02/11, 06/10/2012 PNEUMOCOCCAL VACCINES (50+ years) Completed 05/30/2020, 07/05/2019, 06/11/2016 HEPATITIS A VACCINES Aged Out No long er eligible based on patient's age to complete this topic HIB VACCINES Aged Out No longer eligi ble based on patient's age to complete this topic MENINGOCOCCAL VACCINES (ACWY) Aged Out No longer eligible based on patient's age to complete this topic MENINGOCOCCAL VACCINES (B) Aged Out N o longer eligible based on patient's age to complete this topic Medical Devices Not on file Procedures Procedure Name Priority Date/Time Associated Diagnosis Comments MAMMOGRAPHY Routine 10/05/2022 LIPID PANEL Routine 08/12/2022 10:48 AM EST Hypercholesteremia COMPREHENSIVE METABOLIC PANEL Routine 08/12/2022 10:48 AM EST Hypercholesteremia COLONOSCOPY FOR RESULT ENTRY ONLY Routine 10/03/2021 from Last 3 Months or Most Recently Relevant to Health Maintenance Results * MAMMOGRAPHY FOR RESULT ENTRY ONLY (10/05/2022) us Bharathi Sigala MD HEALTH MAINTENANCE Edited Result - Final * (ABNORMAL) Comprehensive metabolic panel (08/12/2022 10:48 AM EST) SODIUM 144 133 - 146 mmol/L [facility] POTASSIUM 4.1 3.3 - 5.1 mmol/L [facility] CHLORIDE 106 96 - 108 mmol/L [facility] CO2 28 21 - 35 mmol/L [facility] BUN 20(H) 6 - 19 mg/dL [facility] CREATININE 1.30 0.5 - 1.5 mg/dL [facility] GLUCOSE 96 70 - 99 mg/dL [facility] ALBUMIN 4.3 3.9 - 4.8 g/dL [facility] TOTAL PROTEIN 7.0 6.5 - 8.0 g/dL [facility] CALCIUM 8.9 8.4 - 10.3 mg/dL [facility] ALKALINE PHOSPHATASE 73 39 - 117 U/L [facility] TOTAL BILIRUBIN 0.5 0.0 - 1.2 mg/dL [facility] AST 19 0 - 37 U/L [facility] ALT 18 0 - 40 U/L [facility] GLOBULIN 2.7 1 - 4.8 g/dL [facility] EGFR 44(L) >59 mL/min/1.7 3m2 [facility] Comment:Estimated glomerular filtration rate calculated using the CKD-EPI refit equation. ANION GAP 14 10 - 20 mmol/L [facility] Blood 08/12/2022 10:4 8 AM EST 08/12/2022 10:52 AM EST us Bharathi Sigala MD LAB BLOOD ORDERABLES Final Result [facility] [address] [place], [place] [id number] * (ABNORMAL) Lipid panel (08/12/2022 10:48 AM EST) HDL 73 mg/dL [facility] Comment: Interpretation <40 mg/dL: Low HDL cholesterol (major risk factor for CHD) Greater than or equal to 60 mg/dL: High HDL cholesterol ( negative risk factor for CHD) HDL - cholesterol is affected by a number of factors, e.g. smoking, excerise, hormones, sex and age. CHOLESTEROL 190 0 - 240 mg/dL [facility] TRIGLYCERIDES 165(H) 30 - 160 mg/dL [facility] LDL 84 50 - 129 mg/dL [facility] Comment: LDL levels in terms of risk for coronary heart disease: <100 mg/dL: Optimal 100-129 mg/dL: Near or above optimal 130-159 mg/dL: Borderline high 160-189 mg/dL: High >190 mg/dL: Very High CARDIAC RISK RATIO 2.6(L) 3.3 - 4.4 [facility] Blood 08/12/2022 10:4 8 AM EST 08/12/2022 10:52 AM EST us Bharathi Sigala MD LAB BLOOD ORDERABLES Final Result [address] [address] * COLONOSCOPY FOR RESULT ENTRY ONLY (10/03/2021) us Historical Provider HEALTH MAINTENANCE Edited Result - Final from Last 3 Months or Most Recently Relevant to Health Maintenance Insurance [place] BLUE REPLACEMENT MEDICARE PART A & B MEDICARE PPO BLUE REPLACEMENT MEDICARE PART A & B MEDICARE PPO BLUE REPLACEMENT MEDICARE PART A & B [facility] MEDICARE PPO BLUE REPLACEMENT MEDICARE PART A & B [facility] MEDICARE PPO BLUE REPLACEMENT MEDICARE PART A & B [facility] MEDICARE PPO BLUE REPLACEMENT MEDICARE PART A & B [facility] MEDICARE PPO BLUE REPLACEMENT MEDICARE PART A & B MEDICARE PART A & B MEDICARE PART A & B Care Teams Raking Machine Operator Relationship Specialty Start Date End Date Nani Fowler PA [place] [address] [place] [address] PCP - General Physician Shaker Operator 03/30/24 Abran Pastrana MD [address] [place] [address] [place] [id number] Pulmonary Disease 01/04/19 Skyler Hodge MD [address] [place] [address] Dr OSBORN [address] [place] [id number] Neurosurgery 08/17/21 Harry Barillas MD [address] [place] [id number] [email or web address] [email or web address] 12/10/21 Beatrice Parker DO [address] [place] [address] Drive [address] [place] [id number] Obstetrics and Gynecology 10/08/22 Additional Source Comments The information contained in this document represents components of the legal health record. It is not the complete legal health record.[facility]
--- OUTSIDE RECORDS SUMMARY | 2025-05-08 14:06 | XMS_ITS | Clinical Summary ---
Author Organization [facility] Address [address] [place] [address] Care Team Providers Care Coding Clerk Name Role Phone Elmer Mcelroy MD Primary Care Provider [phone] Surgical History Surgery Date Site/Laterality Comments COLONOSCOPY [...] Date Last Done Comments DTaP,Tdap,and Td Vaccines (2 - Td or Tdap) 05/10/2022 05/10/2012 Cholesterol Screening (Lipid Panel) 08/11/2022 Colorectal Cancer Screening: Colonoscopy 08/11/2022 Falls Risk Assessment 08/11/2022 Hepatitis C Screening 08/11/2022 Social Influencers of Health Screening 08/11/2022 Hypertension/CHF/CAD Annual BMP Blood Test 08/26/2022 COVID-19 Vaccine ( season) 2024 07/01/2022, 12/10/2021, 07/08/2021, Additional history exists Depression Screening 09/13/2024 Breast Cancer Screening 10/05/2024 10/05/19 23, 10/03/2021, 08/12/2020, Additional history exists Influenza Vaccine (#1) 2025 , 08/09/2021, 07/02/2020, Additional history exists RSV Immunization Adult Patients (1 - 1-dose 75+ series) 2025 Osteoporosis Screening (Bone Density Screening) 2028 2018 Zoster Vaccines Completed 05/16/2019, 02/11, 06/10/2012 Pneumococcal Vaccine: 50+ Years Completed 05/30/2020, 07/05/2019, 06/11/2016 HIB Vaccines Aged Out No longer eligi [...] age to complete this topic Meningococcal B Vaccine Aged Out No l onger eligible based on patient's age to complete this topic RSV Immunization Patients Under 20 months Aged Out No longer eligible based on patient's age to complete this topic Varicella Vaccines Aged Out No longer eligible based on patient's age to complete this topic Procedures Procedure Name Priority Date/Time Associated Diagnosis Comments [facility] SCREENING DIGITAL Routine 10/05/2022 3:29 PM EST Encounter for screening mammogram for malignant neoplasm of breast [facility] DEXA AXIAL SKELETON Routine 2018 11:50 AM EST Other specified disorders of bone density and structure, unspecified site from Last 3 Months or Most Recently Relevant to Health Maintenance Results * [facility] SCREENING DIGITAL (10/05/2022 3:29 PM EST) Anatomical Region Laterality Modality Mammography 10/05/2022 2:21 PM EST Narrative 10/05/2022 3:29 PM EST [facility] Diagnostic Imaging Department [address] [place] [address] Patient: ZIYADKATIE /Age/Sex: 1950 - 72 - F Unit#: [id number] [facility]Ordering Site: [facility] Ordering Physician: ELMER MCELROY MD [facility] Screening Digital - 10/05/22 - 1439 EXAM: [facility] Screening Digital EXAM DATE AND TIME: 10/05/2022 2:39 PM HISTORY: Screening. Reduction mammoplasty in 2001. Mother had breast carcinoma at age 48. COMPARISON: 10/03/21, 08/12/20, 11/02/18, 10/27/17 TECHNIQUE: CC and MLO views of both breasts were obtained using full field digital mammography. Bilateral digital breast tomosynthesis was performed in the MLO projection. Computer aided detection with [employer] 7.2-H and [employer] 3D 3.1 was employed. TISSUE DENSITY: a. The breasts are almost entirely fatty. FINDINGS: Reduction mammoplasty sequelae are again noted. No suspicious masses, grouped microcalcifications, or developing architectural distortion are seen. Few benign secretory calcifications are again noted. There are multiple skin calcifications. The vascularity is unremarkable. IMPRESSION: Stable mammographic appearance of the breasts. No evidence of malignancy is seen. A negative mammogram in the presence of a clinically suspicious palpable abnormality does not preclude the possibility of malignancy or alter the indications for biopsy. BI-RADS: Category 2: Benign RECOMMENDATION(S): 1: Routine screening mammogram BILATERAL in 1 year. 79756, 33147 3342F, 7025F Dictating Physician: CHERRI SKINNER MD Electronically Signed by: CHERRI SKINNER MD Dic Date/Time: 10/05/22 1528 Sign date/Time: 10/05/22 1529 Procedure Note Cherri Skinner MD - 10/15/2023 [facility] Diagnostic Imaging Department [address] [place] [address] Patient: KATIE BENITEZ Ezequiel Martinez./Age/Sex: 1950 - 72 - F Unit#: [id number] Location/Status: [facility]AM/REG CLI [facility]ician: ELMER MCELROY MD [facility] Screening Digital - 10/05/22 - 1439 EXAM: [facility] Screening Digital EXAM DATE AND TIME: 10/05/2022 2:39 PM HISTORY: Screening. Reduction mammoplasty in 2001. Mother had breastcarcinoma at age 48. COMPARISON: 10/03/21, 08/12/20, 11/02/18, 10/27/17 TECHNIQUE: CC and MLO views of both breasts were obtained using fullfield digital mammography. Bilateral digital breast tomosynthesis was performedin the MLO projection. Computer aided detection with [employer] 7.[employer]-H [employer] 3D 3.1 was employed. TISSUE DENSITY: a. [...] Routine screening mammogram BILATERAL in 1 year. 70897, 73382 3342F, 7025F Dictating Physician: CHERRI SKINNER MD Electronically Signed by: CHERRI SKINNER MD Dic Date/Time: 10/05/22 1528 Sign date/Time: 10/05/22 1529 us Elmer Mcelroy MD IMG BI PROCEDURES Final Re sult * [facility] DEXA AXIAL SKELETON (2018 11:50 AM EST) Anatomical Region Laterality Modality Mammography 2018 11:0 7 AM EST Narrative 2018 11:[address] [facility] Diagnostic Imaging Department [address] [place] [address] Patient: KATIE BENITEZ /Age/Sex: 1950 - 68 - F Unit#: [id number] Location/Status: SPDIMAM/REG CLI Mnemonic/Ordering Site: [facility] Ordering Physician: ELMER MCELROY MD [facility] Dexa Axial Skeleton - 09/19/181143 HISTORY: The patient is a 68-year-old postmenopausal female with clinical concern for metabolic bone disease. FINDINGS: Dual [...] 99% of that of age matched controls. This yields a T-score of -1.2 and a [...] the prior examination of 10/05/2011. There has been an increase of 4.4% in bone mineral density in the right femur and an increase of 4.9% in bone mineral density in the left femur. 2. FRAX analysis yields a 10-year probability of major osteoporotic fracture of 12.4% and a 10-year probability of hip fracture of 2.4%. Code 87721 Dictating Physician: MACIEL PIERRE MD Electronically Signed by: MACIEL PIERRE MD Dic Date/Time: 09/19/18 1149 Sign date/Time: 09/19/18 1150 Procedure Note Maciel Pierre MD - 09/02/2022 [facility] Diagnostic Imaging Department [address] [place] [address] Patient: KATIE BENITEZ Ezequiel LeeB./Age/Sex: 1950 - 68 - F Unit#: [id number] Location/Status: [facility] Mnemonic/Ordering Site: [facility] Ordering Physician: ELMER MCELROY MD [facility] Dexa Axial Skeleton - 09/19/18 114 HISTORY: [...] density of the femurs bilaterally is 0.852 gm/[id number] is 85% of that of young normals [...] probability of hip fracture of 2.4%. Code 00536 Dictating Physician: MACIEL PIERRE MD Electronically Signed by: MACIEL PIERRE MD Dic Date/Time: 09/19/18 1149 Sign date/Time: 09/19/18 1150 us Elmer Mcelroy MD IMG BI PROCEDURES Final Re sult from Last 3 Months or Most Recently Relevant to Health Maintenance Care Teams Coding Clerk Relationship Specialty Start Date End Date Elmer Mcelroy MD [address] [place] [address] PCP - General Pediatrics 09/22/17
--- OUTSIDE RECORDS SUMMARY | 2025-05-08 14:06 | XMS_ITS | Encounter Summary ---
Author Organization [facility] Address [address] [address] Phone Care Team Providers Care Branch Manager Name Role Phone Bharathi Sigala MD Primary Care Provider [phone] Abran Pastrana MD Unavailable [phone] Bharathi Sigala MD Unavailable [phone] PaSkyler MD Unavailable Harry Barillas MD Unavailable [phone] Harry Barillas MD Unavailable [phone] Beatrice Parker DO Unavailable [phone] Pcp, Unknown Primary Care Provider Unavailabl e Bharathi Sigala MD Unavailable [phone] Nani Fowler Primary Care Provider [phone] Encounter Details Date Type Department Care Team (Latest Contact Info) Description 08/30/2019 Transcribe Orders [facility] [address] [place] [address] Edilberto Varela MD [address] [place] [address] Pre-operative laboratory examination (Primary Dx) Social History Tobacco Use Types Packs/Day Years Used Date Smoking Tobacco: Former Cigarettes 1 10 1 4 1983 Smokeless Tobacco: Never Alcohol Use Standard Drinks/Week Comments Yes 0 (1 standard drink = 0.6 oz pur e alcohol) Comments Unknown Sex and Gender Information Value Date Recorded Sex Assigned at Not on file Legal Sex Female 12:47 PM EDT Gender Identity Not on file Sexual Orientation Not on file documented as of this encounter Plan of Treatment Not on file documented as of this encounter Visit Diagnoses Diagnosis Pre-operative laboratory examination- Primary Pre-procedural laboratory examination documented in this encounter Additional Health Concerns Infection Onset Date Last Indicated Resolved Time CoV-Risk 10/30/2020 10/30/2020 11/09/2020 1:23 AM EST documented as of this encounter Care Teams Branch Manager Relationship Specialty Start Date End Date Bharathi Sigala MD [address] [place] [address], [address] [place] [address] PCP - General Family Medicine 09/15/18 02/14/23 Pcp, Unknown PCP - General 02/15/23 03/29/24 Nani Fowler PA [facility], [address] [address] PCP - General Physician Shoe Salesperson 03/30/24 Abran Pastrana MD [address] [place] [address] [place] [address] Pulmonary Disease 01/04/19 Bharathi Sigala MD [address] [place] [address], [address] [place] [address] Insurance Assigned Provider 12/20/19 12/09/21 Skyler Hodge MD [address] [place] [address] [place] [address] Neurosurgery 08/17/21 [place] [address] [email or web address] Psychiatry 08/21/21 12/09/21 Harry Barillas MD [address] [place] [address] [email or web address] Psychiatry 12/10/21 Beatrice Parker DO [address] [place] [address] [address] [place] [phone] Obstetrics and Gynecology 10/08/22 Bharathi Sigala MD [address] [facility], [address] [place] [address] [email or web address] Insurance Assigned Provider 12/20/19 04/18/23 documented as of this encounter Additional Source Comments The information contained in this document represents components of the legal health record. It is not the complete legal health record.[facility]
--- OUTSIDE RECORDS SUMMARY | 2025-05-08 14:06 | XMS_ITS | Patient Health Record ---
Author Organization [facility] Address [address] [facility] [address] [place] [address] Care Team Providers Care Cylinder Press Feeder Name Role Phone ELMER MCELROY Primary Care Provider Unavaila Krupa Gutierrez Unavailable [phone] Reason For Referral No Information Medications Medication [...] Coverage End Date MEDICARE [address] [facility] [id number] KATIE BENITEZ Self - patient is the insured [employer] [address] [place] [address] [id number] KATIE BENITEZ Self - patient is the [...]
--- OUTSIDE RECORDS SUMMARY | 2025-05-08 14:07 | XMS_ITS | Clinical Summary ---
Author Organization [facility] Address [address] [place] [address] Care Team Providers Care Computer Support Analyst Name Role Phone Nani Fowler Primary Care Provider Allergies Active Allergy Reactions Criticality Noted Date Comments Lisinopril Cough,Other (See Comments) Low 9 Medications famotidine (PEPCID) 10 MG tablet Take 20 [...] Take 0.5 mg by mouth. 07/26/2023 Active ciprofloxacin-de xAMETHasone (CIPRODEX) 0.3-0.1 % otic suspension 08/04/2024 Active chlorhexidine (PERIDEX) 0.12 % oral solution 08/07/2024 Activ e trospium (SANCTURA XR) 60 MG extended release capsule 08/08/2024 Act tayla Vyvanse 10 MG capsule 08/17/2024 Active famotidine (PEPCID) 40 MG tabletIndication s:Gastroesophage al reflux disease without esophagitis TAKE ONE TABLET BY MOUTH EVERY DAY 30 tablet 3 03/06/2025 Active Active Problems Problem Noted Date Diagnosed [...] of coronary artery disease 2020 Overview (07/31/2024): fathe age 47, son [place] age 42 Chronic neck pain 11/27/2020 Overview [...] 10/05/2017 Overview (07/31/2024): Bone density January 2022, [facility] History of adult respiratory distress syndrome ( ARDS) 10/05/2017 Overview (07/31/2024): Fiberoptic Bronchoscopy for cultures : 4.14.2002 [facility] History of alcohol abuse 10/05/2017 Overview (07/31/2024): Quit 2008, AA Migraine headache 10/05/2017 S/p total knee replacement, bilateral 10/05/2017 Encounters Date Type Department Care Team Description 03/06/2025 Refill [facility] [address], [place] [address] Shahbaz Mills MD Gastroesophageal reflux disease without esophagitis from Last 3 Months Immunizations Immunization Administration Dates Next Due Influenza High-Dose Quadrivalent,(FLUZONE [...] Passive Smoke Exposure: Never Smokeless Tobacco: Never Comments Unknown Sex and Gender Information Value Date Recorded Sex Assigned at Not on file Legal Sex Female 5:31 PM EDT Gender Identity Not on file [...] Description 06/11/2025 11:00 AM EDT Office Visit [facility] [address] [place] [address] Shahbaz Mills MD [address] [place] [address] Health Maintenance Due Date Last Done Comments Hepatitis C Virus Screening 1950 Mammogram 1990 Colonoscopy 1995 DXA Bone Density (Females,Ages 65 and older) 2015 COVID-19 Vaccine ( season) 2024 07/01/2022, 12/10/2021, 07/08/2021, Additional history exists Influenza Vaccine 04/13/2025 08/17/2023, , 07/07/2022, Additional history exists RSV Vaccine 60 years and older and Patients (1 - 1-dose 75+ series) 2025 DTaP/Tdap/Td Vaccines (3 - Td or Tdap) 08/23/2033 08/23/2023, 05/10/2012 Zoster (Shingles) Vaccine Completed 2018, 03/01/2019, 06/10/2012 Pneumococcal Vaccines 50+ Completed 2019, 05/30/2020, 07/05/2019, Additional history exists Hepatitis B Vaccines Aged Out No long er eligible based on patient's age to complete this topic Insurance MEDICARE PART A & B Care Teams Computer Support Analyst Relationship Specialty Start Date End Date Nani Fowelr PA [address] [place] [id number] PCP - General 07/26/24
--- OUTSIDE RECORDS SUMMARY | 2025-05-08 14:07 | XMS_ITS | Clinical Summary ---
Author Organization [facility] 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 Continue home exercise program and will start physical therapy this summer Family history of coronary arteriosclerosis 05/30/2021 08/17/2023 08/17/2023 Overview (08/17/2023): fathe age 47, son [place] age 42 Age-related osteoporosis wit hout current pathological fracture 09/21/2018 08/17/2023 08/17/2023 Overview (08/17/2023): Bone density January 2022, [facility] Alcohol abuse 09/21/2018 08/17/2023 08/17/2023 Overview [...] Overview (08/17/2023): Fiberoptic Bronchoscopy for cultures : 4.14.2003 [facility] History of alcohol abuse 10/05/2017 08/17/202301/2023 Overview (08/17/2023): Quit 2009, AA History of total knee arthroplasty 10/05/2017202208/17/2023 Migraine 10/05/2017 08/17/2023 08/17/2023 Obstructive sleep apnea syndrome 10/05/2017 08/17/20 23 08/17/2023 Overview (08/17/2023): On CPAP 4-18 cm H2O Managed by pulmonary Last Assessment & Plan: Doing well with CPAP, continue the same Osteoporosis 10/05/2017 08/17/2023 08/17/2023 Immunizations Immunization Administration Dates Next Due Influenza Split High Dose Pr eservative Free IM 05/31/2018,06/11/2016 Influenza, Quadrivalent, Pre servative Free 07/05/2019,09/11/2015 Influenza, Unspecified 07/07/2022,2021,08/09/2021,08/09,07/02/2020,07/05/2019,05/16/2019 ,05/31/2018,06/11/2016,09/11/2015 Moderna SARS-COV-2 12/10/2021, 1,11/01/2020,10/04 Pneumococcal Conjugate 13-Valent 019,07/05/2019,06/11/2016,06/11 Pneumococcal Polysaccharide 05/30/2020, 0 SARS-CoV-2, Unspecified 07/01/2022 Shingrix 05/16/2019,03/01/2019,03/01/2019 Tdap 05/10/2012 Zoster 06/10/2012 Family History Medical History Relation Comments Heart attack Father Breast cancer Mother Colon cancer Mother's Sister Melanoma Mother's Sister Relation Status Comments Father Mother Mother's Sister Social History Tobacco Use Types Packs/Day Years Used Date Smoking Tobacco: Former Cigarettes Tobacco Cessation:Counseling Given: Not Answered Alcohol Use Standard Drinks/Week Comments Yes 0 (1 standard drink = 0.6 oz pur e alcohol) ocassionally Comments Unknown Sex and Gender Information Value Date Recorded Sex Assigned at Not on file Legal Sex Female 11:52 AM EST Gender Identity Not on file Sexual Orientation Not on file Last Filed Vital Signs Vital Sign Reading Time Taken Comments Blood Pressure 112/60 01/15/2025 9:02 AM EDT Pulse 76 01/15/2025 9:02 AM EDT Temperature - - Respiratory Rate - - Oxygen Saturation 95% 01/15/2025 9:02 AM EDT Inhaled Oxygen Concentration - - Weight 60.3 kg (133 lb) 01/15/2025 9:02 AM EDT Height - - Body Mass Index - - Plan of Treatment Upcoming Encounters Date Type Department Care Team (Late st Contact Info) Description 08/03/2025 10:00 AM EST Office Visit [facility] [address] [place] [phone] Osorio Gallegos MD [address] [address] Health Maintenance Due Date Last Done Comments Breast Cancer Screening 1950 Colorectal Cancer Screening: Annual FOBT 1999 Colorectal Cancer Screening: Colonoscopy 1999 Colorectal Cancer Screening: Sigmoidoscopy 1999 Influenza Vaccine (#1) 2025 2, 07/07/2022, 08/09/2021, Additional history exists Pneumococcal Vaccine: 50+ Years Completed 05/30/2020, 05/30/2020, 07/05/2019, Additional history exists Hepatitis B Vaccine Aged Out No longe r eligible based on patient's age to complete this topic Insurance [facility] Medicare Care Teams Firer Bisque Kiln Relationship Specialty Start Date End Date Alexia Piper Md [address] [place] [address] PCP - General 01/15/25
--- OUTSIDE RECORDS SUMMARY | 2025-05-08 14:07 | XMS_ITS | Encounter Summary ---
Author Organization [facility] Address [address] [place] [address] Care Team Providers Care Extruder Operator Helper Name Role Phone Nani Fowler Primary Care Provider [phone] Encounter Details Date Type Department Care Team (Late st Contact Info) Description 08/15/2024 Scanned Document [facility] [place] [address] [place] [address] Shahbaz Mills MD [address] [place] [phone] Social History Tobacco Use Types Packs/Day Years [...] Description 06/11/2025 11:00 AM EDT Office Visit [facility] [address] [place] [phone] Shahbaz Mills MD [address] [place] [phone] documented as of this encounter Visit Diagnoses Not on filedocumented in this encounter Care Teams Extruder Operator Helper Relationship Specialty Start Date End Date Nani Fowler PA [address] [place] [address] PCP - General 07/26/24 documented as of this encounter
== END 2025-05-08 13:46 | disposition home or self-care (01) ==
LOC: HO.HPS 13:16
PROVIDERS: PCP Internal Medicine; Visit Provider Hospitalist
DX: F51.01 Primary insomnia (principal); G47.33 Obstructive sleep apnea (adult) (pediatric); Z99.89 Dependence on other enabling machines and devices; J45.20 Mild intermittent asthma, uncomplicated
CPT/HCPCS: 99214

== ENCOUNTER → 2025-05-08 13:16 | Outpatient (BNVA) | payer MEDICARE, SELFPAY | PROVIDERS: PCP Internal Medicine; Visit Provider Hospitalist | DX: J45.20 Mild intermittent asthma, uncomplicated (principal); F51.01 Primary insomnia; G47.33 Obstructive sleep apnea (adult) (pediatric); Z99.89 Dependence on other enabling machines and devices | CPT/HCPCS: 99212 ==